=== PATIENT | male | born 1980 | race Caucasian/White ===

== ENCOUNTER 2018-06-06 05:12 | Emergency (ER) | payer BC, SELFPAY ==
[2018-06-06 05:13] VITALS: BP 150/85; PULSE 81; RESP 14; TEMP 36.7; O2SAT 97; BMI 38.0
[2018-06-06 05:16] VITALS: BP 147/78; PULSE 70; RESP 14; O2SAT 98
[2018-06-06] MEDS: Ketorolac 15 MG/ML Vial IV (05:26)
[2018-06-06] MEDS: 0.9% Normal Saline 1,000 ML 1000 ML IV (05:26)
[2018-06-06] MEDS: Ondansetron 4 MG/2 ML Vial IV (05:26)
[2018-06-06 05:35] LABS: Absolute Lymphocyte Count 0.59 X10^3/ul (0.83-4.51); Absolute Neutrophil Count 13.3 X10^3/uL (2.0-7.7); Basophil# 0.02 X10^3/uL; Basophil% 0.1 % (0-1); Hematocrit 42.1 % (40-54); Hemoglobin 14.3 g/dl (13.0-16.5); Lymphocyte # 0.59 X10^3/ul (4.0); Lymphocyte % 4.1 % (19-41); Mean Corpuscular Hgb 30.9 pg (27.0-32.0); Mean Corpuscular Volume 90.9 fL (80-94); Mean Platelet Vol. 9.3 fl (6.2-12.0); Monocyte# 0.31 X10^3/uL; Monocyte% 2.2 % (0-10); Neutrophil # 13.32 X10^3/uL (2.7-7.7); Neutrophil % 93.5 % (47-70); Platelet Count 295 K/mm3 (150-450); RBC Distribution Width CV 12.5 % (11.6-14.6); RBC Distribution Width SD 40.7 fl (35.1-43.9); Red Blood Count 4.63 M/mm3 (4.6-6.2); White Blood Count 14.3 K/mm3 (4.4-11.0)
[2018-06-06 05:38] LABS: Differential Indicated SCAN CRITERIA MET; POSITIVE COUNT NO; POSITIVE DIFFERENTIAL YES; POSITIVE MORPHOLOGY NO
[2018-06-06 05:50] LABS: AST(SGOT) 22 U/L (15-37); Alanine Aminotransfer ALT/SGPT 34 U/L (16-61); Albumin, Serum 3.9 g/dL (3.2-5.0); Alkaline Phosphatase 73 U/L (45-117); Anion Gap 10 (5-15); BUN 13 mg/dL (7-18); BUN/Creat Ratio 17.4 RATIO (10-20); Chloride 104 mmol/L (98-107); Creatinine, Serum 0.74 mg/dL (0.70-1.30); EST Glomerular Filtration Rate 124 mL/min (>60); Est Glom Filt Rate - Afr Amer 150 mL/min (>60); Glucose 118 mg/dL (74-106); Lipase 100 U/L (73-393); Potassium 3.8 mmol/L (3.5-5.1); Protein, Total 7.9 g/dL (6.4-8.2); Sodium Level 138 mmol/L (136-145)
--- NOTE | 2018-06-06 06:06 | ED.VISSUMM ---
- ER Visit Summary Date of Service: 06/06/18 Chief Complaint: [Nausea and vomiting] History of Present Illness: The patient is a 38 M [that presents with epigastric abdominal pain, nausea, and vomiting for the last several hours. His pain started after the vomiting. Hematemesis. He denies any diarrhea or urinary symptoms. He describes epigastric nonradiating abdominal aching type pain. He overall appears well and nontoxic. He has no other complaints. He denies any chest pain or dyspnea.] Physical Examination: [General: The patient appears well and in no apparent distress. Patient is resting comfortably on cart. Skin: Warm, dry, no pallor noted. No rash. Head: Normocephalic, atraumatic Neck: Supple, nontender. Eye: PERRLA, EOMI ENT: Moist mucus membranes, pharynx within normal limits. Cardiovascular: Regular Rate and Rhythm, no gallups or rubs Respiratory: Patient is in no distress, no accessory muscle use, lungs are clear to auscultation, no wheezing, rales or rhonchi Musculoskeletal: normal ROM, no deformity, no tenderness, no swelling. 2+ radial and DP pulses symmetric. GI: No tenderness to palpation, no masses appreciated. No rebound, guarding, or rigidity noted. Neurological: A&O, normal strength and sensation. Psychiatric: Cooperative] Test Results: [] Emergency Department Course and Treatment: [Patient given IV fluids, Zofran, and Toradol with improvement of symptoms. Mild nonspecific leukocytosis, remainder blood work overall unremarkable. CMP and lipase within normal limits. On reevaluation at 0555 patient feels improved and abdominal exam remains soft, nontender, nondistended. I do not feel imaging is indicated at this time. He will be given short-term prescription for Zofran ODT and referred to primary care for follow-up. He was instructed to return to the emergency department with any new or worsening symptoms or if unable to obtain close follow-up appointment. Patient and family understand and are agreeable with this plan of care. Patient was discharged home in stable and improved condition.] Treatment Plan: [see above] Disposition: [Discharge home, stable and improved condition] Impression: [Epigastric abdominal pain - resolved, Nausea and vomiting ] This note was generated with [employer] software. It may contain incorrect words, spelling, and punctuation that were not noted in review of the chart prior to signing ED Disposition - Plan for ED Patient: Disposition: Home or Assisted Living Chief Complaint: Nausea/Vomiting Instructions: ED Nausea Vomiting Prescriptions: Ondansetron [Zofran Odt] 4 mg PO Q8H PRN PRN #10 tab PRN Reason: Nausea Referrals: Darrell Vázquez DO [STAFF PHYSICIAN] -
[2018-06-06 06:19] VITALS: BP 156/80; PULSE 69; RESP 18; O2SAT 96
== END 2018-06-06 06:19 | disposition home or self-care (01) ==
PROVIDERS: Emergency Provider Emergency Medicine
DX: R10.13 Epigastric pain (principal); R11.2 Nausea with vomiting, unspecified; Z72.0 Tobacco use
CPT/HCPCS: 80053; 83690; 85025; 96361; 96374; 96375; 99283; J7030; J2405

== ENCOUNTER 2018-06-09 10:13 | Inpatient (IN) | payer BC, SELFPAY ==
[2018-06-09] VITALS (13 sets, daily range): BP systolic 114–159; BP diastolic 71–96; PULSE 77–115; RESP 14–19; TEMP 36.6–37.6; O2SAT 92–97; BMI 38.0; BMI 34.8
--- NOTE | 2018-06-09 10:42 | ED.VISSUMM ---
- ER Visit Summary Date of Service: 06/09/18 Chief Complaint: Epigastric abdominal pain with nausea, vomiting and diarrhea. History of Present Illness: The patient is a 38 M no significant past medical history. Denies any prior abdominal surgeries. Patient states since Tuesday he has had epigastric abdominal pain. Also with nausea, vomiting and diarrhea. He denies any hematemesis. He denies any dysuria. Subjectively states he has had a fever. He was seen in [place] ER on June 06 had a basically negative workup at that time. Was treated with IV fluids and nausea medications. He states he is not gotten any better. Patient states that he has black stool. Physical Examination: Middle-aged male. No acute distress. Vital signs are stable. Afebrile. He does not look septic or toxic. He does not look significantly dehydrated. HEENT exam unremarkable. Moist weeks membranes. Neck nontender. No lymphadenopathy. Lungs clear to auscultation bilaterally. Heart regular rhythm no murmur rate about 110. Abdomen is soft. Nondistended. Normal bowel sounds. He does have reproducible epigastric tenderness. There is no hernias or masses. There is no Jones sign. Positive McBurney's point tenderness. He is moving all 4 extremities. Neurovascular intact. Back is nontender. I did do a rectal exam he has normal rectal tone. There is no masses. Nontender. There is no gross blood. He has loose brown stool. There is no melena. Neurologically is awake and alert. Test Results: CBC showed an elevated white count of 23,500. Hemoglobin 14. Electrolytes unremarkable. Liver enzymes total bilirubin 1.1. Otherwise unremarkable. Lipase normal at 65. Due to his elevated white count from prior I obtained a CT abdomen and pelvis with IV contrast only. That was reviewed by me and read by the radiologist showed a perforated appendicitis with phlegmon fluid collection. Also distention of the bowel consistent with an ileus versus an early low-grade partial small bowel obstruction. On repeat exam no significant change. Patient's primarily tender in epigastric and periumbilical region. He does have some right lower quadrant tenderness. He has rebound. He is not significantly distended. Emergency Department Course and Treatment: Patient treated with IV Phenergan and IV fluids. Also p.o. Pepcid. With the patient's CAT scan findings he was started on IV Zosyn. I spoke to the general surgeon Dr. Shine and she requested that the patient also receive a NG tube due to his bowel distention. Treatment Plan: Admission for IV antibiotics. I spoke to Dr. Shine from the general surgeon after she evaluated the patient and reviewed his CAT scan and she does feel it is in his best interest to be taken to the operating room for appendectomy.. Disposition: Discharge Impression: Acute nausea, vomiting and diarrhea with abdominal pain secondary to perforated acute appendicitis with ileus versus partial small bowel obstruction This note was generated with [employer] dictation software. It may contain incorrect words, spelling, and punctuation that were not noted in review of the chart prior to signing ED Disposition - Plan for ED Patient: Disposition: Home or Assisted Living Instructions: ED Gastroenteritis Viral Prescriptions: Ondansetron [Zofran Odt] 4 mg PO Q8H PRN PRN #7 tab PRN Reason: Nausea Omeprazole [Prilosec] 20 mg PO DAILY #30 cap Referrals: Roger Richter [[facility]] - 3-5 Days if not improving Additional Instructions: Plenty of fluids and rest. Zofran as needed for nausea. Follow-up with a local primary care physician. Return if feeling worse. Prilosec for possible gastritis.
--- NOTE | 2018-06-09 10:45 | ED.DEP ---
ED Disposition - Plan for ED Patient: Disposition: Home or Assisted Living Instructions: ED Gastroenteritis Viral Prescriptions: Ondansetron [Zofran Odt] 4 mg PO Q8H PRN PRN #7 tab PRN Reason: Nausea Omeprazole [Prilosec] 20 mg PO DAILY #30 cap Referrals: Roger Richter [[facility]] - 3-5 Days if not improving Additional Instructions: Plenty of fluids and rest. Zofran as needed for nausea. Follow-up with a local primary care physician. Return if feeling worse. Prilosec for possible gastritis.
[2018-06-09] MEDS: proMETHazine 25 MG/ML Syringe 12.5 MG IV ×2 (10:47→12:59)
[2018-06-09] MEDS: 0.9% Normal Saline 1,000 ML 1000 ML IV (10:47)
[2018-06-09 11:18] LABS: AST(SGOT) 13 U/L (15-37); Alanine Aminotransfer ALT/SGPT 22 U/L (16-61); Albumin, Serum 3.1 g/dL (3.2-5.0); Alkaline Phosphatase 97 U/L (45-117); Anion Gap 10 (5-15); BUN 16 mg/dL (7-18); Bilirubin, Direct 0.16 mg/dL (0.00-0.30); Calcium,Total 9.5 mg/dL (8.5-10.1); Chloride 98 mmol/L (98-107); Creatinine, Serum 1.07 mg/dL (0.70-1.30); EST Glomerular Filtration Rate 82 mL/min (>60); Est Glom Filt Rate - Afr Amer 99 mL/min (>60); Estimated Creatinine Clearance 89.67 ml/min; Globulin 5.7 g/dL (2.2-4.2); Glucose 125 mg/dL (74-106); Lipase 65 U/L (73-393); Potassium 3.8 mmol/L (3.5-5.1); Protein, Total 8.8 g/dL (6.4-8.2); Sodium Level 134 mmol/L (136-145)
[2018-06-09] MEDS: Famotidine 20 MG Tablet 40 MG PO (11:22)
[2018-06-09 11:34] LABS: Absolute Lymphocyte Count 0.53 X10^3/ul (0.83-4.51); Absolute Neutrophil Count 21.2 X10^3/uL (2.0-7.7); Basophil# 0.02 X10^3/uL; Basophil% 0.1 % (0-1); Eosinophil# 0.02 X10^3/uL; Eosinophils% 0.1 % (0-5); Hematocrit 41.9 % (40-54); Hemoglobin 14.5 g/dl (13.0-16.5); Lymphocyte # 0.53 X10^3/ul (4.0); Lymphocyte % 2.3 % (19-41); Mean Corp Hgb Conc 34.6 g/gl (32-36); Mean Corpuscular Hgb 31.7 pg (27.0-32.0); Mean Corpuscular Volume 91.5 fL (80-94); Mean Platelet Vol. 9.6 fl (6.2-12.0); Monocyte# 1.66 X10^3/uL; Monocyte% 7.1 % (0-10); Neutrophil # 21.21 X10^3/uL (2.7-7.7); Platelet Count 271 K/mm3 (150-450); RBC Distribution Width CV 12.8 % (11.6-14.6); RBC Distribution Width SD 42.6 fl (35.1-43.9); Red Blood Count 4.58 M/mm3 (4.6-6.2); White Blood Count 23.5 K/mm3 (4.4-11.0)
[2018-06-09 11:35] LABS: Differential Indicated SCAN CRITERIA MET; POSITIVE COUNT NO; POSITIVE DIFFERENTIAL YES; POSITIVE MORPHOLOGY NO
--- NOTE | 2018-06-09 11:38 | CT_ITS ---
STUDY: CT ABDOMEN AND PELVIS WITH CONTRAST REASON FOR EXAM: Male, 38 years old. Epigastric pain, leukocytosis. RADIATION DOSAGE (If Supplied By Facility): CTDIvol = ( 18.71 ) mGy, DLP = ( 1332.73 ) mGycm TECHNIQUE: Transaxial images were obtained from the dome of the diaphragm to the symphysis pubis without oral contrast. 100 ml of Isovue 300 contrast was administered. Sagittal and coronal images were reconstructed. Individualized dose optimization techniques were used for this CT. COMPARISON: None. FINDINGS: Mild elevation of the right diaphragm. The visualized lung bases are unremarkable. The visualized portions of the heart are within normal limits. Normal liver. The portal vein diameter is 15.5 mm. Normal gallbladder and extrahepatic biliary system. The common bile duct diameter is 5 mm. Normal spleen. Normal pancreas. Normal bilateral adrenal glands. Normal right kidney. Normal left kidney. No hydronephrosis. Normal visualized stomach. There are numerous loops of 4 cm diameter as in fluid-filled small bowel to the ileocecal region. There are number of 10-11 mm rim calcified appendicoliths in the appendix, which is dilated up to 21 mm. There is significant inflammatory/phlegmonous stranding surrounding the appendix, lower cecum, and ileocecal juncture. Within this phlegmonous change is 6.6 x 5.3 x 4.0 cm ill-defined collection of low-density fluid and gas bubbles consistent with localized perforation. The remainder of the colon is unremarkable. There are number of nonspecific lymph nodes in the central mesentery. Normal abdominal aorta. Normal inferior vena cava. There are occasional nonspecific periaortic peritoneal lymph nodes. Normal urinary bladder. Normal visualized prostate gland. Normal abdominal wall. Degenerative anterior endplate osteophyte formation in the lower thoracic spine most prominent at T8-9 and T9-10. There are minimal degenerative changes of the lumbar spine. CT/Abdomen/Pelvis W IV Cont ONLY IMPRESSION: Acute appendicitis with localized perforation and surrounding phlegmonous inflammatory changes. There is mild small bowel dilatation that could reflect a generalized ileus versus low-grade partial small bowel obstruction secondary to the inflammatory process of the ileocecal valve. N.B. : The above information has been verbally conveyed by Earnest Becker MD to Mazin Burciaga MD, on 06/09/2018 12:09:21 (ET). Electronically Signed: Earnest Becker MD at 12:14 EST , Service support ,
[2018-06-09 11:54] LABS: Differential Comment SCANNED
--- NOTE | 2018-06-09 12:22 | RAD_ITS ---
STUDY: X-RAY - ABDOMEN/PELVIS REASON FOR EXAM: Male, 38 years old. Nausea/vomiting/diarrhea. Admission for appendicitis. TECHNIQUE: Single AP upright view of the abdomen. COMPARISON: CT abdomen and pelvis 1147 hours. FINDINGS: Poorly visualized lung bases. Distal nasogastric tube is in the stomach. There are numerous loops of gas and fluid-filled small bowel with fluid levels on upright exam, consistent with an ileus or low-grade partial small bowel obstruction. There is no demonstrated free abdominal air. The visualized liver, spleen and kidneys are grossly normal in size and morphology. Contrast from previous study seen in the nondilated renal calyces. Normal soft tissue structures. There are degenerative changes of the visualized lower thoracic spine. RAD/Abdomen Single View (Portable) IMPRESSION: 1. Distal nasogastric tube is in the stomach. 2. Small bowel ileus versus low-grade partial small bowel obstruction. No demonstrated free gas. Electronically Signed: Earnest Becker MD at 13:45 EST , Service support ,
[2018-06-09] MEDS: morphine 8 MG/ML Syringe 6 MG IV (12:29)
--- NOTE | 2018-06-09 12:49 | CM.ED ---
Social Work Note Pt does not have PCP. Introduced self and role to pt's , Nia, as pt was with imaging and experiencing uncontrolled emesis. Per pt's they live together, have access to transportation and deny needs. Pt does not have a PCP, but accepted information on area physicians that are accepting. Stated that they both are stubborn and have had bad experiences with doctors but was willing to review the list. Informed that staff could assist with scheduling an appointment at discharge is needed. Their preferred pharmacy is [facility], and educated them to [facility] for convenience at discharge. Pt does not have a hx of mental health diagnoses, and does chew tobacco daily. No other substance abuse concerns. Anticipate discharge home with support of . PLAN: Home with support of . JACEK Del Valle, HEATHER
--- NOTE | 2018-06-09 13:23 | PCM.HP.STD ---
History of Present Illness Date of Admission: 06/09/18 The patient is a 38 year old M presented to the ER due to diffuse abdominal pain, decreased appetite, fevers, nausea and vomiting. Patient had a CT abdomen pelvis done which did show perforated appendicitis/phlegmon with appendicoliths, dilated small bowel likely ileus. Patient's white blood count is 23.5. Patient states that pain initially started on Tuesday evening and he came into the ER Tuesday a.m. mostly complaining of kind of epigastric pain he was told he had the fluid was given some fluid and DC'd home. Patient states he continued to have abdominal pain and not feel well, fevers, nausea and vomiting, decreased appetite and so he represented to the ER today. Patient complains of mostly diffuse abdominal pain 10 out of 10 prior to coming in. Past Medical History Allergies No Known Allergies Allergy (Verified 06/09/18 10:15) Home Medications: Ambulatory Orders Medication Instructions Recorded Ondansetron [Zofran Odt] 4 mg PO Q8H PRN PRN #10 tab 06/06/18 Omeprazole [Prilosec] 20 mg PO DAILY #30 cap 06/09/18 Ondansetron [Zofran Odt] 4 mg PO Q8H PRN PRN #7 tab 06/09/18 Surgical History: no surgical history Psychiatric History: No pertinent psych hx Lives: With Family Smoking Status: Never smoker Alcohol: Occasional Drugs: None - *Family History Paternal History Items: No pertinent history Review of Systems Constitutional: Reports: Anorexia, Chills, Fever Eyes: Denies: Blurred vision HEENT: Denies: Difficulty Swallowing Cardiovascular: Denies: Chest Pain Gastrointestinal: Reports: Abdominal Pain VTE Information - Inpt Only VTE Present on Admission: Yes VTE Mechan Device Prophylaxis: SCD's VTE Pharm Prophylaxis ordered?: No Reason prophylaxis not ordered:: Medical Contraindication - Patient is going to surgery - Physical Exam General: Alert, Oriented x3, Cooperative HEENT: Atraumatic Lungs: Normal air movement Cardiovascular: Regular rate Abdomen: Soft, Non-Distended, Tender - Diffusely tender-right upper quadrant, right lower quadrant, left lower quadrant, mild worsening sign, no peritoneal signs Extremities: No clubbing, No cyanosis, No edema Neurological: Cranial nerves II-XII grossly intact Psych/Mental Status: Normal Affect Vital Signs Temp Pulse Resp BP Pulse Ox 98 F 86 16 159/96 H 96 06/09/18 10:13 06/09/18 12:17 06/09/18 12:17 06/09/18 12:17 06/09/18 12:17 Oxygen Delivery Method Room Air Weight: 250 lb Body Mass Index (BMI) 38.0 Laboratory Tests Past 24 Hrs 06/09/18 06/09/18 06/09/18 10:45 10:47 11:23 WBC Cancelled 23.5 H Corrected WBC Cancelled RBC Cancelled 4.58 L Hgb Cancelled 14.5 Hct Cancelled 41.9 MCV Cancelled 91.5 MCH Cancelled 31.7 MCHC Cancelled 34.6 RDW Cancelled 12.8 RDW Differential Cancelled 42.6 Plt Count Cancelled 271 MPV Cancelled 9.6 Immature Gran % (Auto) Cancelled 0.400 Neut % (Auto) Cancelled 90.0 H Lymph % (Auto) Cancelled 2.3 L [place] % (Auto) Cancelled 7.1 Eos % (Auto) Cancelled 0.1 Baso % (Auto) Cancelled 0.1 Absolute Neuts (auto) Cancelled 21.2 H Absolute Lymphs (auto) Cancelled 0.53 L Total Counted Cancelled Not Reportable Neutrophils % (Manual) Cancelled Band Neutrophils % Cancelled Lymphocytes % (Manual) Cancelled Monocytes % (Manual) Cancelled Eosinophils % (Manual) Cancelled Basophils % (Manual) Cancelled Metamyelocytes % Cancelled Myelocytes % Cancelled Promyelocytes % Cancelled Blast Cells % Cancelled Plasma Cell % (Manual) Cancelled Other Cells % Cancelled Nucleated RBCs/100 WBC Cancelled Differential Comment Cancelled SCANNED Diff Path Review Cancelled May foll Hypersegmented Neuts Cancelled Atypical Lymphocytes Cancelled Reactive Lymphocytes Cancelled Smudge Cells Cancelled Toxic Granulation Cancelled Dohle Bodies Cancelled Eduard Rods Cancelled Platelet Estimate Cancelled Plt Morphology Comment Cancelled RBC Morphology Cancelled Polychromasia Cancelled Hypochromasia Cancelled Poikilocytosis Cancelled Basophilic Stippling Cancelled Anisocytosis Cancelled Microcytosis Cancelled Macrocytosis Cancelled Spherocytes Cancelled Sickle Cells Cancelled Target Cells Cancelled Tear Drop Cells Cancelled Ovalocytes Cancelled Stomatocytes Cancelled [place] Bodies Cancelled [place] Cells Cancelled Bite Cells Cancelled Acanthocytes (Spur) Cancelled Rouleaux Cancelled Schistocytes Cancelled Sodium 134 L Potassium 3.8 Chloride 98 Carbon Dioxide 26.0 Anion Gap 10 BUN 16 Creatinine 1.07 Estim Creat Clear Calc 89.67 Est GFR (MDRD) Af Amer 99 Est GFR (MDRD) Non-Af 82 BUN/Creatinine Ratio 15.0 Glucose 125 H Calcium 9.5 Total Bilirubin 1.10 H Direct Bilirubin 0.16 AST 13 L ALT 22 Alkaline Phosphatase 97 Total Protein 8.8 H Albumin 3.1 L Globulin 5.7 H Lipase 65 L Assessment/Plan 38-year-old male with perforated appendicitis, appendicoliths and localized phlegmon, white blood count of 23.5 1. N.p.o./IV fluids. Zosyn IV. We will plan for a laparoscopic appendectomy possible open possible bowel resection which could include an ileocecectomy, possible drain placement. Discussed with patient and his risks including but not limited to bleeding, infection/abscess, need for further surgery if only a drain was placed, possible leak, injury to another organ i.e. small bowel, and anesthesia. Discussed with patient and his that his CT scan showed that there is localized perforation is not really amenable to local drainage also due to his multiple appendicoliths in his appendix he would need surgical intervention to remove those. Patient and his had no further questions at this time. Bhavana Shine M.D. Pager: [phone] [facility] [address] [place] [address], [address] [place] [address] Office: [phone]
--- NOTE | 2018-06-09 13:30 | HP.PCM_ITS ---
History of Present Illness Date of Admission: 06/09/18 The patient is a 38 year old M presented to the ER due to diffuse abdominal pain, decreased appetite, fevers, nausea and vomiting. Patient had a CT abdomen pelvis done which did show perforated appendicitis/phlegmon with appendicoliths, dilated small bowel likely ileus. Patient's white blood count is 23.5. Patient states that pain initially started on Tuesday evening and he came into the ER Tuesday a.m. mostly complaining of kind of epigastric pain he was told he had the fluid was given some fluid and DC'd home. Patient states he continued to have abdominal pain and not feel well, fevers, nausea and vomiting, decreased appetite and so he represented to the ER today. Patient complains of mostly diffuse abdominal pain 10 out of 10 prior to coming in. Past Medical History Allergies No Known Allergies Allergy (Verified 06/09/18 10:15) Home Medications: Ambulatory Orders Medication Instructions Recorded Ondansetron [Zofran Odt] 4 mg PO Q8H PRN PRN #10 tab 06/06/18 Omeprazole [Prilosec] 20 mg PO DAILY #30 cap 06/09/18 Ondansetron [Zofran Odt] 4 mg PO Q8H PRN PRN #7 tab 06/09/18 Surgical History: no surgical history Psychiatric History: No pertinent psych hx Lives: With Family Smoking Status: Never smoker Alcohol: Occasional Drugs: None - *Family History Paternal History Items: No pertinent history Review of Systems Constitutional: Reports: Anorexia, Chills, Fever Eyes: Denies: Blurred vision HEENT: Denies: Difficulty Swallowing Cardiovascular: Denies: Chest Pain Gastrointestinal: Reports: Abdominal Pain VTE Information - Inpt Only VTE Present on Admission: Yes VTE Mechan Device Prophylaxis: SCD's VTE Pharm Prophylaxis ordered?: No Reason prophylaxis not ordered:: Medical Contraindication - Patient is going to surgery - Physical Exam General: Alert, Oriented x3, Cooperative HEENT: Atraumatic Lungs: Normal air movement Cardiovascular: Regular rate Abdomen: Soft, Non-Distended, Tender - Diffusely tender-right upper quadrant, right lower quadrant, left lower quadrant, mild worsening sign, no peritoneal signs Extremities: No clubbing, No cyanosis, No edema Neurological: Cranial nerves II-XII grossly intact Psych/Mental Status: Normal Affect Vital Signs Temp Pulse Resp BP Pulse Ox 98 F 86 16 159/96 H 96 06/09/18 10:13 06/09/18 12:17 06/09/18 12:17 06/09/18 12:17 06/09/18 12:17 Oxygen Delivery Method Room Air Weight: 250 lb Body Mass Index (BMI) 38.0 Laboratory Tests Past 24 Hrs 06/09/18 06/09/18 06/09/18 10:45 10:47 11:23 WBC Cancelled 23.5 H Corrected WBC Cancelled RBC Cancelled 4.58 L Hgb Cancelled 14.5 Hct Cancelled 41.9 MCV Cancelled 91.5 MCH Cancelled 31.7 MCHC Cancelled 34.6 RDW Cancelled 12.8 RDW Differential Cancelled 42.6 Plt Count Cancelled 271 MPV Cancelled 9.6 Immature Gran % (Auto) Cancelled 0.400 Neut % (Auto) Cancelled 90.0 H Lymph % (Auto) Cancelled 2.3 L [place] % (Auto) Cancelled 7.1 Eos % (Auto) Cancelled 0.1 Baso % (Auto) Cancelled 0.1 Absolute Neuts (auto) Cancelled 21.2 H Absolute Lymphs (auto) Cancelled 0.53 L Total Counted Cancelled Not Reportable Neutrophils % (Manual) Cancelled Band Neutrophils % Cancelled Lymphocytes % (Manual) Cancelled Monocytes % (Manual) Cancelled Eosinophils % (Manual) Cancelled Basophils % (Manual) Cancelled Metamyelocytes % Cancelled Myelocytes % Cancelled Promyelocytes % Cancelled Blast Cells % Cancelled Plasma Cell % (Manual) Cancelled Other Cells % Cancelled Nucleated RBCs/100 WBC Cancelled Differential Comment Cancelled SCANNED Diff Path Review Cancelled May foll Hypersegmented Neuts Cancelled Atypical Lymphocytes Cancelled Reactive Lymphocytes Cancelled Smudge Cells Cancelled Toxic Granulation Cancelled Dohle Bodies Cancelled Eduard Rods Cancelled Platelet Estimate Cancelled Plt Morphology Comment Cancelled RBC Morphology Cancelled Polychromasia Cancelled Hypochromasia Cancelled Poikilocytosis Cancelled Basophilic Stippling Cancelled Anisocytosis Cancelled Microcytosis Cancelled Macrocytosis Cancelled Spherocytes Cancelled Sickle Cells Cancelled Target Cells Cancelled Tear Drop Cells Cancelled Ovalocytes Cancelled Stomatocytes Cancelled Barnes-[place] Bodies Cancelled [place] Cells Cancelled Bite Cells Cancelled Acanthocytes (Spur) Cancelled Rouleaux Cancelled Schistocytes Cancelled Sodium 134 L Potassium 3.8 Chloride 98 Carbon Dioxide 26.0 Anion Gap 10 BUN 16 Creatinine 1.07 Estim Creat Clear Calc 89.67 Est GFR (MDRD) Af Amer 99 Est GFR (MDRD) Non-Af 82 BUN/Creatinine Ratio 15.0 Glucose 125 H Calcium 9.5 Total Bilirubin 1.10 H Direct Bilirubin 0.16 AST 13 L ALT 22 Alkaline Phosphatase 97 Total Protein 8.8 H Albumin 3.1 L Globulin 5.7 H Lipase 65 L Assessment/Plan 38-year-old male with perforated appendicitis, appendicoliths and localized phlegmon, white blood count of 23.5 1. N.p.o./IV fluids. Zosyn IV. We will plan for a laparoscopic appendectomy possible open possible bowel resection which could include an ileocecectomy, possible drain placement. Discussed with patient and his risks including but not limited to bleeding, infection/abscess, need for further surgery if only a drain was placed, possible leak, injury to another organ i.e. small bowel, and anesthesia. Discussed with patient and his that his CT scan showed that there is localized perforation is not really amenable to local drainage also due to his multiple appendicoliths in his appendix he would need surgical intervention to remove those. Patient and his had no further questions at this time. Bhavana Shine M.D. Pager: [phone] [facility] [address] [place] [address], [address] [place] [address] Office: [phone]
--- NOTE | 2018-06-09 14:15 | ED.RN ---
report given to at 1415. desire[facility] rn
--- NOTE | 2018-06-09 14:20 | APP_PTH ---
PATIENT: ERMIAS MUNOZ LOC: MS2 U#:[id number] AGE/SX: 38/M [place] [facility] [place]: Dr. Bhavana Shine MD : 1980 BED: 1 DIS: 06/16/2018 SPEC #: [id number] RECD: 06/12/18 07:40 STATUS: JAIRO KAMALJIT #: [id number] ML: 06/09/18 14:[address]: Bhavana Shine DEPT: SURGICAL PATHOLOGY RECD BY: Freddie Loyd ENTERED: 06/12/18 09:40 SP TYPE: APPENDIX OTHR DR: No Primary Care Phys Tissues: Appendix, NOS Procedures: Surgery Specimen Level III HEADER OPERATION: Laparoscopic appendectomy PRE-OP DIAGNOSIS: Perforated appendicitis, appendicolith, localized phlegmon TISSUE SUBMITTED: Appendix MICROSCOPIC DIAGNOSIS Appendix, appendectomy: Acute appendicitis. Acute serositis. Appendicolith. AM:elie 06/13/18 MICROSCOPIC DESCRIPTION Slides are reviewed. GROSS DESCRIPTION Received is one container labeled with the patient's name and designated appendix. The specimen consists of an appendix measuring 13 cm in length and with an average diameter of 2.5 cm. The serosal surface is valentine-mendoza in color. No gross perforations are identified. Serial sections reveal fecal impaction and fecaliths. Nail Technician sections are submitted in four cassettes. / AM:elie 06/12/18 TC:2 CPT: 45270
[2018-06-09 15:59] LABS: Pathologist Review Reviewed
[2018-06-09] MEDS: Bupiv/Epi 0.5% Mpf 30 ML Vial (17:30)
--- NOTE | 2018-06-09 17:34 | PCM.OPRPT ---
Report of Operation Date of Procedure: 06/09/18 Pre-Operative Diagnosis: Perforated appendicitis Post-Operative Diagnosis: Same Surgery/Procedure Performed:: Laparoscopic appendectomy infection control nurse: Antoine Lassiter infection control nurse: Moisés Iniguez Type of Anesthesia:: General/Supplemental Anesthesiologist: Herbie Dumont Special Medications: Zosyn 4.5 g IV given in ER for acute perforated appendicitis Specimen's removed: appendix Drains: johnson 350cc, NG-150 cc Estimated Blood Loss (mL): < 30 cc Fluids Replaced: 2300 Description of Procedure: Indications: 38-year-old male presented to the ER with new right lower quadrant pain this morning. On workup he was found to have perforated appendicitis on CT and a leukocytosis of 23, with hx of pain for 5 days. Patient was started on antibiotics in the ER for acute appendicitis-Zosyn 4.5 g IV x1 Description of the procedure: The patient was placed on operating table in supine position. General anesthesia was induced. A timeout was completed verifying correct patient, procedure, sacrum position and special, prior to beginning procedure. A Johnson catheter was placed and NG was placed in ER. Abdomen was prepped and draped in usual sterile fashion. Incision was made in the natural skin line above the umbilicus with a 15 blade scalpel. The fascia was elevated and incised. Entry into the peritoneum was confirmed visually and no bowel was noted in the vicinity of the incision. The Negrete trocar was placed under direct vision. Abdomen insufflated with a pressure of 12-15 mmHg. Patient tolerated insertion well. The scope was inserted and the abdomen inspected. No injuries from initial trocar placement were noted. An inflammatory mass was noted in the right lower quadrant. An direct visualization 2 -5 mm trocars were placed one above the symptoms his pubis and below the hairline and one in the left lower quadrant lateral to the rectus muscle. Care is taken to avoid injury to the bladder and inferior epigastric vessels. The table was placed in Trendelenburg position with the right side elevated. The omentum was carefully removed from the inflammatory mass with gentle traction. The appendix was noted to be very inflamed and large. The appendix was able to be freed from the terminal ileum and abdominal sidewall with gentle traction. The appendix did have dense adhesions. An additional 5 mm trochar placed in the right mid quadrant to help with retraction. The abscess pocket was suctioned and sent for culture. Using a [place] dissector able to dissect the base of the appendix from the cecum after freeing up the base of the cecum. Once we were able to free up the base of the appendix. An endoscopic 45 mm linear cutting stapler blue load was then used to divide and staple the base of the appendix. The base of the divided appendix was grasped and used for traction to help remove the appendix from the rest of the inflammatory tissue. Once it was clear that small bowel was clear from the dissection, the Enseal was used to divide the mesoappendix. The appendix was withdrawn into the Negrete trocar after being placed endoscopically retrieval bag. The supraumbilical incision had to be enlarged due to the size of the appendix. Appendix and appendicoliths was sent to pathology. The appendiceal stump and abdomen were irrigated with a couple liters of fluid and hemostasis was assured. Fluid was suctioned no other pathology was identified. Secondary trochars were removed under direct visualization. No bleeding was noted trocar sites. The laparoscope withdrawn and the umbilical trocar removed. The abdomen was allowed to collapse. Local anesthesia of 20 mL of 0.5% Marcaine was used at the incision sites. The umbilical trocar site was closed with the 3 [id number] 0 Vicryl sutures. The skin was closed up to clear sutures of 4-0 Monocryl and Steri-Strips. The patient was extubated. The patient tolerated the procedure well and was taken to the postanesthesia care unit in satisfactory condition. - Complications none
[2018-06-09] MEDS: Piperacil/Tazobactam 3.375 GM/50 ML ML IV (20:58)
[2018-06-10 03:30] VITALS: BP 117/82; PULSE 105; RESP 18; TEMP 37.1; O2SAT 95
[2018-06-10] MEDS: Piperacil/Tazobactam 3.375 GM/50 ML ML IV ×3 (06:05→21:53)
[2018-06-10 06:58] LABS: Absolute Lymphocyte Count 0.57 X10^3/ul (0.83-4.51); Absolute Neutrophil Count 15.2 X10^3/uL (2.0-7.7); Basophil# 0.02 X10^3/uL; Basophil% 0.1 % (0-1); Hematocrit 40.5 % (40-54); Hemoglobin 13.5 g/dl (13.0-16.5); Lymphocyte # 0.57 X10^3/ul (4.0); Lymphocyte % 3.2 % (19-41); Mean Corp Hgb Conc 33.3 g/gl (32-36); Mean Corpuscular Hgb 30.8 pg (27.0-32.0); Mean Corpuscular Volume 92.5 fL (80-94); Mean Platelet Vol. 9.4 fl (6.2-12.0); Monocyte% 9.7 % (0-10); Neutrophil # 15.19 X10^3/uL (2.7-7.7); Neutrophil % 86.7 % (47-70); Platelet Count 347 K/mm3 (150-450); RBC Distribution Width CV 13.3 % (11.6-14.6); Red Blood Count 4.38 M/mm3 (4.6-6.2); White Blood Count 17.5 K/mm3 (4.4-11.0)
[2018-06-10 06:59] LABS: Differential Indicated SCAN CRITERIA MET; POSITIVE COUNT NO; POSITIVE DIFFERENTIAL YES; POSITIVE MORPHOLOGY NO
[2018-06-10 07:31] LABS: AST(SGOT) 12 U/L (15-37); Alanine Aminotransfer ALT/SGPT 18 U/L (16-61); Albumin, Serum 2.2 g/dL (3.2-5.0); Alkaline Phosphatase 76 U/L (45-117); Anion Gap 12 (5-15); BUN 15 mg/dL (7-18); BUN/Creat Ratio 18.3 RATIO (10-20); Bilirubin, Direct 0.25 mg/dL (0.00-0.30); Calcium,Total 8.4 mg/dL (8.5-10.1); Chloride 109 mmol/L (98-107); Creatinine, Serum 0.82 mg/dL (0.70-1.30); EST Glomerular Filtration Rate 111 mL/min (>60); Est Glom Filt Rate - Afr Amer 135 mL/min (>60); Estimated Creatinine Clearance 124.88 ml/min; Globulin 4.7 g/dL (2.2-4.2); Glucose 146 mg/dL (74-106); Potassium 3.9 mmol/L (3.5-5.1); Protein, Total 6.9 g/dL (6.4-8.2); Sodium Level 143 mmol/L (136-145)
--- NOTE | 2018-06-10 08:15 | PN.SURG_ITS ---
Subjective: Patient states he is feeling better than yesterday, denies any nausea or vomiting, minimal flatus, minimal NG output?NG DC'd - Physical Exam General: Alert, Oriented x3, Cooperative, No apparent distress HEENT: Atraumatic Cardiovascular: Regular rate Abdomen: Soft, Non-Distended, Tender - Near incisions, incisions clean dry and intact, no peritoneal signs Extremities: No clubbing, No cyanosis, No edema Vital Signs Temp Pulse Resp BP Pulse Ox 98.8 F 105 H 18 117/82 H 95 06/10/18 03:30 06/10/18 03:30 06/10/18 03:30 06/10/18 03:30 06/10/18 03:30 Oxygen Flow Rate (L/min) 3 Oxygen Delivery Method Nasal Cannula Weight: 248 lb 10.903 oz Body Mass Index (BMI) 34.8 Intake and Output for Last 24 Hours 06/08/18 06/09/18 06/10/18 23:59 23:59 23:59 Intake Total 3450 / 3450 532 / 532 Output Total 975 / 975 350 / 350 Balance 2475 / 2475 182 / 182 Laboratory Tests Past 24 Hrs 06/09/18 06/09/18 06/09/18 10:45 10:47 11:23 WBC Cancelled 23.5 H Corrected WBC Cancelled RBC Cancelled 4.58 L Hgb Cancelled 14.5 Hct Cancelled 41.9 MCV Cancelled 91.5 MCH Cancelled 31.7 MCHC Cancelled 34.6 RDW Cancelled 12.8 RDW Differential Cancelled 42.6 Plt Count Cancelled 271 MPV Cancelled 9.6 Immature Gran % (Auto) Cancelled 0.400 Neut % (Auto) Cancelled 90.0 H Lymph % (Auto) Cancelled 2.3 L Ellis % (Auto) Cancelled 7.1 Eos % (Auto) Cancelled 0.1 Baso % (Auto) Cancelled 0.1 Absolute Neuts (auto) Cancelled 21.2 H Absolute Lymphs (auto) Cancelled 0.53 L Total Counted Cancelled Not Reportable Neutrophils % (Manual) Cancelled Band Neutrophils % Cancelled Lymphocytes % (Manual) Cancelled Monocytes % (Manual) Cancelled Eosinophils % (Manual) Cancelled Basophils % (Manual) Cancelled Metamyelocytes % Cancelled Myelocytes % Cancelled Promyelocytes % Cancelled Blast Cells % Cancelled Plasma Cell % (Manual) Cancelled Other Cells % Cancelled Nucleated RBCs/100 WBC Cancelled Differential Comment Cancelled SCANNED Diff Path Review Cancelled Reviewed Hypersegmented Neuts Cancelled Atypical Lymphocytes Cancelled Reactive Lymphocytes Cancelled Smudge Cells Cancelled Toxic Granulation Cancelled Dohle Bodies Cancelled Eduard Rods Cancelled Platelet Estimate Cancelled Plt Morphology Comment Cancelled RBC Morphology Cancelled Polychromasia Cancelled Hypochromasia Cancelled Poikilocytosis Cancelled Basophilic Stippling Cancelled Anisocytosis Cancelled Microcytosis Cancelled Macrocytosis Cancelled Spherocytes Cancelled Sickle Cells Cancelled Target Cells Cancelled Tear Drop Cells Cancelled Ovalocytes Cancelled Stomatocytes Cancelled [place] Bodies Cancelled Tello Cells Cancelled Bite Cells Cancelled Acanthocytes (Spur) Cancelled Rouleaux Cancelled Schistocytes Cancelled Sodium 134 L Potassium 3.8 Chloride 98 Carbon Dioxide 26.0 Anion Gap 10 BUN 16 Creatinine 1.07 Estim Creat Clear Calc 89.67 Est GFR (MDRD) Af Amer 99 Est GFR (MDRD) Non-Af 82 BUN/Creatinine Ratio 15.0 Glucose 125 H Calcium 9.5 Total Bilirubin 1.10 H Direct Bilirubin 0.16 AST 13 L ALT 22 Alkaline Phosphatase 97 Total Protein 8.8 H Albumin 3.1 L Globulin 5.7 H Lipase 65 L 06/10/18 06/10/18 06:25 06:25 WBC 17.5 H Corrected WBC RBC 4.38 L Hgb 13.5 Hct 40.5 MCV 92.5 MCH 30.8 MCHC 33.3 RDW 13.3 RDW Differential 45.0 H Plt Count 347 MPV 9.4 Immature Gran % (Auto) 0.300 Neut % (Auto) 86.7 H Lymph % (Auto) 3.2 L Ellis % (Auto) 9.7 Eos % (Auto) 0.0 Baso % (Auto) 0.1 Absolute Neuts (auto) 15.2 H Absolute Lymphs (auto) 0.57 L Total Counted Not Reportable Neutrophils % (Manual) Band Neutrophils % Lymphocytes % (Manual) Monocytes % (Manual) Eosinophils % (Manual) Basophils % (Manual) Metamyelocytes % Myelocytes % Promyelocytes % Blast Cells % Plasma Cell % (Manual) Other Cells % Nucleated RBCs/100 WBC Differential Comment Diff Path Review May foll Hypersegmented Neuts Atypical Lymphocytes Reactive Lymphocytes Smudge Cells Toxic Granulation Dohle Bodies Eduard Rods Platelet Estimate Plt Morphology Comment RBC Morphology Polychromasia Hypochromasia Poikilocytosis Basophilic Stippling Anisocytosis Microcytosis Macrocytosis Spherocytes Sickle Cells Target Cells Tear Drop Cells Ovalocytes Stomatocytes [place] Bodies Walton Cells Bite Cells Acanthocytes (Spur) Rouleaux Schistocytes Sodium 143 Potassium 3.9 Chloride 109 H Carbon Dioxide 22.0 Anion Gap 12 BUN 15 Creatinine 0.82 Estim Creat Clear Calc 124.88 Est GFR (MDRD) Af Amer 135 Est GFR (MDRD) Non-Af 111 BUN/Creatinine Ratio 18.3 Glucose 146 H Calcium 8.4 L Total Bilirubin 0.90 Direct Bilirubin 0.25 AST 12 L ALT 18 Alkaline Phosphatase 76 Total Protein 6.9 Albumin 2.2 L Globulin 4.7 H Lipase Medical Necessity - Tobacco Use Smoking Status: Never smoker Tobacco Use: Chew Assessment/Plan 38-year-old male status post lap scopic appendectomy for perforated appendicitis 1. N.p.o./IV fluids, await increased bowel function 2. Leukocytosis, improved still 17, continue Zosyn IV 3. Ambulate halls 4. Wean O2, incentive spirometer 5. PPI for GI prophylaxis, SCDs for DVT prophylaxis Bhavana Shine M.D. Pager: [phone] [facility] [address] [place] [address], Outpatient [facility]ilion, [address] [place] [id number] Office: [phone]
[2018-06-10] MEDS: Ketorolac 15 MG/ML Vial IV (09:43)
[2018-06-10] MEDS: 0.9% NaCl Peripheral Flush Adult/Peds IV (09:44)
--- NOTE | 2018-06-10 10:23 | CM.UR ---
mission assessment specialist completed. Met face to face with patient and his , introduced myself and explained my role. they deny anticipating any needs upon discharge. Plan it so discharge to home. Johanna Cazares RN, [facility].
[2018-06-10 10:34] VITALS: BP 123/85; PULSE 91; RESP 18; TEMP 37.3; O2SAT 94
[2018-06-10 15:23] VITALS: BP 127/83; PULSE 92; RESP 18; TEMP 36.6; O2SAT 94
[2018-06-10] MEDS: Morphine 2 MG/ML Syringe IV (15:30)
[2018-06-10 16:00] VITALS: O2SAT 94
[2018-06-10] MEDS: BENZOCAINE/MENTHOL 1 LOZENGE MUCOUS MEM (18:50)
[2018-06-10] MEDS: Famotidine 20 MG Tablet PO (18:50)
[2018-06-10 21:46] VITALS: BP 154/99; PULSE 96; RESP 18; TEMP 37.2; O2SAT 92
[2018-06-11] MEDS: Ketorolac 15 MG/ML Vial IV ×2 (02:19→18:00)
[2018-06-11 05:25] VITALS: BP 151/86; PULSE 87; RESP 18; TEMP 36.8; O2SAT 95
[2018-06-11] MEDS: Piperacil/Tazobactam 3.375 GM/50 ML ML IV ×3 (05:27→21:35)
[2018-06-11 07:46] LABS: Absolute Lymphocyte Count 0.99 X10^3/ul (0.83-4.51); Absolute Neutrophil Count 12.1 X10^3/uL (2.0-7.7); Basophil# 0.06 X10^3/uL; Basophil% 0.4 % (0-1); Eosinophil# 0.08 X10^3/uL; Eosinophils% 0.5 % (0-5); Hematocrit 36.4 % (40-54); Hemoglobin 12.2 g/dl (13.0-16.5); Lymphocyte # 0.99 X10^3/ul (4.0); Lymphocyte % 6.8 % (19-41); Mean Corp Hgb Conc 33.5 g/gl (32-36); Mean Corpuscular Hgb 31.9 pg (27.0-32.0); Mean Platelet Vol. 9.3 fl (6.2-12.0); Monocyte# 1.28 X10^3/uL; Monocyte% 8.8 % (0-10); Neutrophil # 12.07 X10^3/uL (2.7-7.7); Platelet Count 323 K/mm3 (150-450); RBC Distribution Width CV 13.5 % (11.6-14.6); Red Blood Count 3.83 M/mm3 (4.6-6.2); White Blood Count 14.6 K/mm3 (4.4-11.0)
[2018-06-11 07:48] LABS: Differential Indicated SCAN CRITERIA MET; POSITIVE COUNT NO; POSITIVE DIFFERENTIAL NO; POSITIVE MORPHOLOGY YES
[2018-06-11 07:55] LABS: Anion Gap 8 (5-15); BUN 16 mg/dL (7-18); BUN/Creat Ratio 21.4 RATIO (10-20); Calcium,Total 8.5 mg/dL (8.5-10.1); Chloride 113 mmol/L (98-107); Creatinine, Serum 0.75 mg/dL (0.70-1.30); EST Glomerular Filtration Rate 124 mL/min (>60); Est Glom Filt Rate - Afr Amer 150 mL/min (>60); Estimated Creatinine Clearance 136.54 ml/min; Glucose 105 mg/dL (74-106); Potassium 4.2 mmol/L (3.5-5.1); Sodium Level 146 mmol/L (136-145)
[2018-06-11 08:13] LABS: Atypical Lymphocyte RARE %
--- NOTE | 2018-06-11 08:19 | PN.SURG_ITS ---
Subjective: Patient having some flatus, diarrhea and also burping and complains of indigestion, ambulating halls - Physical Exam General: Alert, Oriented x3, Cooperative, No apparent distress Lungs: Normal air movement Cardiovascular: Regular rate Abdomen: Soft, Non-Distended, Tender - Tender near incisions, incision clean dry and intact, no peritoneal signs Vital Signs Temp Pulse Resp BP Pulse Ox 98.3 F 87 18 151/86 H 95 06/11/18 05:25 06/11/18 05:25 06/11/18 05:25 06/11/18 05:25 06/11/18 05:25 Oxygen Flow Rate (L/min) 3 Oxygen Delivery Method Room Air Weight: 248 lb 10.903 oz Body Mass Index (BMI) 34.8 Intake and Output for Last 24 Hours 06/09/18 06/10/18 06/11/18 23:59 23:59 23:59 Intake Total 3450 / 3450 2083 / 2083 2884 / 2884 Output Total 975 / 975 350 / 350 350 / 350 Balance 2475 / 2475 1733 / 1733 2534 / 2534 Microbiology Past 72 Hours 06/09/18 16:06 Gram Stain - Final Aspirate - Abdominal Wound Culture - Preliminary Alpha Hemolytic Streptococcus Laboratory Tests Past 24 Hrs 06/11/18 06/11/18 07:10 07:10 WBC 14.6 H RBC 3.83 L Hgb 12.2 L Hct 36.4 L MCV 95.0 H MCH 31.9 MCHC 33.5 RDW 13.5 RDW Differential 45.0 H Plt Count 323 MPV 9.3 Immature Gran % (Auto) 0.500 Neut % (Auto) 83.0 H Lymph % (Auto) 6.8 L Bates % (Auto) 8.8 Eos % (Auto) 0.5 Baso % (Auto) 0.4 Absolute Neuts (auto) 12.1 H Absolute Lymphs (auto) 0.99 Total Counted Not Reportable Atypical Lymphocytes RARE Sodium 146 H Potassium 4.2 Chloride 113 H Carbon Dioxide 25.0 Anion Gap 8 BUN 16 Creatinine 0.75 Estim Creat Clear Calc 136.54 Est GFR (MDRD) Af Amer 150 Est GFR (MDRD) Non-Af 124 BUN/Creatinine Ratio 21.4 H Glucose 105 Calcium 8.5 Medical Necessity - Tobacco Use Smoking Status: Never smoker Tobacco Use: Chew Assessment/Plan 38-year-old male status post lap scopic appendectomy for perforated appendicitis 1. N.p.o./IV fluids, await increased bowel function, check KUB 2. Leukocytosis, improved still 14, continue Zosyn IV 3. Ambulate halls 4. incentive spirometer 5. PPI for GI prophylaxis, SCDs for DVT prophylaxis Bhavana Shine M.D. Pager: [phone] [facility] [address] [place] [address], [facility], [address] [place] [address] Office: [phone]
--- NOTE | 2018-06-11 08:20 | RAD_ITS ---
STUDY: X-RAY - ABDOMEN/PELVIS REASON FOR EXAM: Male, 38 years old. Abdominal pain. Perforated acute appendicitis on CT June 09, 2018. TECHNIQUE: AP view of the abdomen / pelvis on 3 films. COMPARISON: CT abdomen pelvis as well as single view upright abdominal x-ray June 09, 2018. FINDINGS: Non-visualized lung bases. Calcification in the right lower quadrant overlapping the iliac crest and one image may correspond to one of the calcified appendicoliths seen by CT. Again seen are a number of dilated gas and fluid-filled small bowel loops out of proportion to the minimal gas present in the nondistended colon. The findings are consistent with reactive ileus versus partial small bowel obstruction secondary to the inflammatory process in the right lower quadrant. The nasogastric tube has been removed. There is no demonstrated free abdominal air. The visualized liver, spleen and kidneys are grossly normal in size and morphology. Normal soft tissue structures. There are degenerative changes of the visualized lower thoracic spine. RAD/Abdomen Single View IMPRESSION: Small bowel ileus versus partial small bowel obstruction secondary to inflammation in the right lower quadrant with mildly worsened small bowel dilatation. The nasogastric tube has been removed. Electronically Signed: Earnest Becker MD at 9:30 EST , Service support ,
[2018-06-11 08:56] VITALS: BP 140/91; PULSE 84; RESP 18; TEMP 37.1; O2SAT 95
[2018-06-11] MEDS: Morphine 2 MG/ML Syringe IV (09:03)
[2018-06-11] MEDS: Mag Hydrox/Al Hydrox/Simeth 30 ML UDC PO ×3 (09:03→20:27)
[2018-06-11] MEDS: Ondansetron 4 MG/2 ML Vial IV (09:03)
[2018-06-11] MEDS: Lactated Ringers 1,000 ML 100 ML IV ×2 (09:04→21:35)
[2018-06-11 09:15] VITALS: O2SAT 95
[2018-06-11 14:31] VITALS: BP 147/94; PULSE 93; RESP 18; TEMP 36.7; O2SAT 94
[2018-06-11] MEDS: 0.9% NaCl Peripheral Flush Adult/Peds IV ×2 (18:00→19:25)
[2018-06-11 19:59] VITALS: BP 144/90; PULSE 88; RESP 18; TEMP 36.6; O2SAT 94
[2018-06-12] MEDS: Ketorolac 15 MG/ML Vial IV ×2 (00:11→19:52)
[2018-06-12 02:00] VITALS: BP 149/96; PULSE 83; RESP 18; TEMP 36.9; O2SAT 94
[2018-06-12] MEDS: Piperacil/Tazobactam 3.375 GM/50 ML ML IV (06:01)
[2018-06-12 06:12] LABS: Anion Gap 11 (5-15); BUN 14 mg/dL (7-18); BUN/Creat Ratio 21.1 RATIO (10-20); Calcium,Total 8.4 mg/dL (8.5-10.1); Chloride 112 mmol/L (98-107); Creatinine, Serum 0.66 mg/dL (0.70-1.30); EST Glomerular Filtration Rate 142 mL/min (>60); Est Glom Filt Rate - Afr Amer 172 mL/min (>60); Estimated Creatinine Clearance 155.16 ml/min; Glucose 94 mg/dL (74-106); Potassium 3.6 mmol/L (3.5-5.1); Sodium Level 147 mmol/L (136-145)
--- NOTE | 2018-06-12 06:32 | RAD_ITS ---
STUDY: X-RAY - ABDOMEN/PELVIS REASON FOR EXAM: Male, 38 years old. Possible ileus 72 hours post cholecystectomy (appendectomy). TECHNIQUE: AP view of the abdomen / pelvis on 3 films. COMPARISON: AP view of the abdomen and pelvis on 3 images June 11, 2018. FINDINGS: Incomplete ventilation at the lung bases. There is mild elevation of the right diaphragm. There is a stable pattern of numerous gas and fluid-filled small bowel loops and a possibility of gas in the colon. Findings are consistent with small bowel ileus versus partial small bowel obstruction. There is no demonstrated free abdominal air. The visualized liver, spleen and kidneys are grossly normal in size and morphology. A few radiopaque sutures consistent with prior appendectomy are noted in the right lower quadrant. Normal soft tissue structures. There are stable degenerative changes of the visualized breast spine. RAD/Abdomen Single View (Portable) IMPRESSION: The findings remain consistent with small bowel ileus versus partial small bowel obstruction. No free gas. Electronically Signed: Earnest Becker MD at 15:55 EST , Service support ,
[2018-06-12 06:43] LABS: Absolute Lymphocyte Count 1.89 X10^3/ul (0.83-4.51); Absolute Neutrophil Count 8.7 X10^3/uL (2.0-7.7); Basophil% 2.4 % (0-1); Eosinophil# 0.41 X10^3/uL; Eosinophils% 3.3 % (0-5); Hematocrit 35.6 % (40-54); Hemoglobin 11.4 g/dl (13.0-16.5); Lymphocyte # 1.89 X10^3/ul (4.0); Lymphocyte % 15.1 % (19-41); Mean Corpuscular Hgb 30.4 pg (27.0-32.0); Mean Corpuscular Volume 94.9 fL (80-94); Mean Platelet Vol. 9.2 fl (6.2-12.0); Monocyte# 1.11 X10^3/uL; Monocyte% 8.9 % (0-10); Neutrophil % 69.7 % (47-70); Platelet Count 335 K/mm3 (150-450); RBC Distribution Width CV 13.6 % (11.6-14.6); RBC Distribution Width SD 47.3 fl (35.1-43.9); Red Blood Count 3.75 M/mm3 (4.6-6.2); White Blood Count 12.5 K/mm3 (4.4-11.0)
[2018-06-12 06:46] LABS: Differential Indicated SCAN CRITERIA MET; POSITIVE COUNT NO; POSITIVE DIFFERENTIAL NO; POSITIVE MORPHOLOGY YES
[2018-06-12 08:00] VITALS: BP 148/86; PULSE 80; RESP 16; TEMP 37.1; O2SAT 95
[2018-06-12] MEDS: Lactated Ringers 1,000 ML 100 ML IV (08:38)
[2018-06-12] MEDS: 0.9% NaCl Peripheral Flush Adult/Peds IV (08:40)
--- NOTE | 2018-06-12 11:57 | PCM.PN.SRG ---
Subjective: Pt has less burping, +diarrhea, KUB still shows some dilated SB but improved - Physical Exam General: Alert, Oriented x3, Cooperative, No apparent distress Lungs: Normal air movement Cardiovascular: Regular rate Abdomen: Soft, Non-Distended, Tender - near incision c/d/i, no PS Vital Signs Temp Pulse Resp BP Pulse Ox 98.7 F 80 16 148/86 H 95 06/12/18 08:00 06/12/18 08:00 06/12/18 08:00 06/12/18 08:00 06/12/18 08:00 Oxygen Flow Rate (L/min) 3 Oxygen Delivery Method Room Air Weight: 248 lb 10.903 oz Body Mass Index (BMI) 34.8 Intake and Output for Last 24 Hours 06/10/18 06/11/18 06/12/18 23:59 23:59 23:59 Intake Total 2083 / 2083 3906 / 3906 1592.3 / 1592.3 Output Total 350 / 350 750 / 750 350 / 350 Balance 1733 / 1733 3156 / 3156 1242.3 / 1242.3 Microbiology Past 72 Hours 06/09/18 16:06 Gram Stain - Final Aspirate - Abdominal Wound Culture - Final Strep anginosus Anaerobic Culture - Preliminary Checking for anaerobes, further studies to follow. Laboratory Tests Past 24 Hrs 06/12/18 06/12/18 05:30 05:30 WBC 12.5 H RBC 3.75 L Hgb 11.4 L Hct 35.6 L MCV 94.9 H MCH 30.4 MCHC 32.0 RDW 13.6 RDW Differential 47.3 H Plt Count 335 MPV 9.2 Immature Gran % (Auto) 0.600 Neut % (Auto) 69.7 Lymph % (Auto) 15.1 L [place] % (Auto) 8.9 Eos % (Auto) 3.3 Baso % (Auto) 2.4 H Absolute Neuts (auto) 8.7 H Absolute Lymphs (auto) 1.89 Total Counted Not Reportable Sodium 147 H Potassium 3.6 Chloride 112 H Carbon Dioxide 24.0 Anion Gap 11 BUN 14 Creatinine 0.66 L Estim Creat Clear Calc 155.16 Est GFR (MDRD) Af Amer 172 Est GFR (MDRD) Non-Af 142 BUN/Creatinine Ratio 21.1 H Glucose 94 Calcium 8.4 L Medical Necessity - Tobacco Use Smoking Status: Never smoker Tobacco Use: Chew Assessment/Plan 38-year-old male status post laparoscopic appendectomy for perforated appendicitis 1. sips of clears/IV fluids, await increased bowel function 2. Leukocytosis, improved still 12.5, Unasyn IV 3. Ambulate halls 4. incentive spirometer 5. PPI for GI prophylaxis, SCDs for DVT prophylaxis Bhavana Shine M.D. Pager: [phone] [facility] [address] [place] [address], [facility], [address] [place] [address] Office: [phone]
--- NOTE | 2018-06-12 12:00 | PN.SURG_ITS ---
Subjective: Pt has less burping, +diarrhea, KUB still shows some dilated SB but improved - Physical Exam General: Alert, Oriented x3, Cooperative, No apparent distress Lungs: Normal air movement Cardiovascular: Regular rate Abdomen: Soft, Non-Distended, Tender - near incision c/d/i, no PS Vital Signs Temp Pulse Resp BP Pulse Ox 98.7 F 80 16 148/86 H 95 06/12/18 08:00 06/12/18 08:00 06/12/18 08:00 06/12/18 08:00 06/12/18 08:00 Oxygen Flow Rate (L/min) 3 Oxygen Delivery Method Room Air Weight: 248 lb 10.903 oz Body Mass Index (BMI) 34.8 Intake and Output for Last 24 Hours 06/10/18 06/11/18 06/12/18 23:59 23:59 23:59 Intake Total 2083 / 2083 3906 / 3906 1592.3 / 1592.3 Output Total 350 / 350 750 / 750 350 / 350 Balance 1733 / 1733 3156 / 3156 1242.3 / 1242.3 Microbiology Past 72 Hours 06/09/18 16:06 Gram Stain - Final Aspirate - Abdominal Wound Culture - Final Strep anginosus Anaerobic Culture - Preliminary Checking for anaerobes, further studies to follow. Laboratory Tests Past 24 Hrs 06/12/18 06/12/18 05:30 05:30 WBC 12.5 H RBC 3.75 L Hgb 11.4 L Hct 35.6 L MCV 94.9 H MCH 30.4 MCHC 32.0 RDW 13.6 RDW Differential 47.3 H Plt Count 335 MPV 9.2 Immature Gran % (Auto) 0.600 Neut % (Auto) 69.7 Lymph % (Auto) 15.1 L [place] % (Auto) 8.9 Eos % (Auto) 3.3 Baso % (Auto) 2.4 H Absolute Neuts (auto) 8.7 H Absolute Lymphs (auto) 1.89 Total Counted Not Reportable Sodium 147 H Potassium 3.6 Chloride 112 H Carbon Dioxide 24.0 Anion Gap 11 BUN 14 Creatinine 0.66 L Estim Creat Clear Calc 155.16 Est GFR (MDRD) Af Amer 172 Est GFR (MDRD) Non-Af 142 BUN/Creatinine Ratio 21.1 H Glucose 94 Calcium 8.4 L Medical Necessity - Tobacco Use Smoking Status: Never smoker Tobacco Use: Chew Assessment/Plan 38-year-old male status post laparoscopic appendectomy for perforated appendicitis 1. sips of clears/IV fluids, await increased bowel function 2. Leukocytosis, improved still 12.5, Unasyn IV 3. Ambulate halls 4. incentive spirometer 5. PPI for GI prophylaxis, SCDs for DVT prophylaxis Bhavana Shine M.D. Pager: [phone] [facility] [address] [place] [address], [facility], [address] [place] [address] Office: [phone]
[2018-06-12 14:00] VITALS: BP 157/88; PULSE 76; RESP 16; TEMP 36.4; O2SAT 94
[2018-06-12 15:07] LABS: Pathologist Review Reviewed
[2018-06-12 19:37] VITALS: BP 146/70; PULSE 73; RESP 20; TEMP 37.3; O2SAT 94
[2018-06-12] MEDS: Lactated Ringers 1,000 ML 80 ML IV (19:52)
[2018-06-13] VITALS (7 sets, daily range): BP systolic 140–153; BP diastolic 78–89; PULSE 65–74; RESP 16–18; TEMP 36.7–37.1; O2SAT 94–98
[2018-06-13 06:00] LABS: Anion Gap 11 (5-15); BUN 10 mg/dL (7-18); BUN/Creat Ratio 19.3 RATIO (10-20); Calcium,Total 8.2 mg/dL (8.5-10.1); Chloride 110 mmol/L (98-107); Creatinine, Serum 0.52 mg/dL (0.70-1.30); EST Glomerular Filtration Rate 189 mL/min (>60); Est Glom Filt Rate - Afr Amer 229 mL/min (>60); Estimated Creatinine Clearance 196.93 ml/min; Glucose 83 mg/dL (74-106); Potassium 3.3 mmol/L (3.5-5.1); Sodium Level 146 mmol/L (136-145)
[2018-06-13 06:39] LABS: Hematocrit 33.4 % (40-54); Hemoglobin 10.8 g/dl (13.0-16.5); Mean Corp Hgb Conc 32.3 g/gl (32-36); Mean Corpuscular Hgb 30.4 pg (27.0-32.0); Mean Corpuscular Volume 94.1 fL (80-94); Mean Platelet Vol. 9.2 fl (6.2-12.0); Platelet Count 334 K/mm3 (150-450); RBC Distribution Width CV 13.1 % (11.6-14.6); Red Blood Count 3.55 M/mm3 (4.6-6.2); White Blood Count 11.4 K/mm3 (4.4-11.0)
[2018-06-13 06:40] LABS: Differential Indicated MANUAL DIFF; POSITIVE COUNT NO; POSITIVE DIFFERENTIAL NO; POSITIVE MORPHOLOGY YES
[2018-06-13 07:22] LABS: Eosinophil 1 % (0-5); Lymphocyte 16 % (19-41); Monocyte 2 % (0-10); Neutrophil-Band 23 % (0-5); Neutrophil-Segmented 47 % (47-70); Total Cells Counted 100 (MANUAL DIFF)
[2018-06-13 07:23] LABS: Plasma Cell 11 %
[2018-06-13 07:24] LABS: Absolute Lymphocyte Count 1.82 X10^3/ul (0.83-4.51); Lymphocyte # 1.82 X10^3/ul (4.0); Neutrophil # 7.98 X10^3/uL (2.7-7.7)
[2018-06-13 07:25] LABS: Platelet Estimate ADEQUATE (ADEQ); Red Cell Morphology NORM C+C NORMAL (NORM C&C)
--- NOTE | 2018-06-13 07:30 | RAD_ITS ---
STUDY: X-RAY - ABDOMEN/PELVIS REASON FOR EXAM: Male, 38 years old. History of small bowel obstruction. TECHNIQUE: AP supine and upright views of the abdomen and pelvis. COMPARISON: Comparison is made with prior study dated June 12, 2018. FINDINGS: Elevation of the right hemidiaphragm. Mild degree of increased linear markings at the lung bases suggestive of bibasilar atelectasis. There are dilated loops of the small intestine with a non-distended colon consistent with a small bowel obstruction. A small amount of gas is seen throughout the colon. There is no demonstrated free abdominal air. The visualized liver, spleen and kidneys are grossly normal in size and morphology. Normal soft tissue structures. Normal visualized osseous structures. RAD/Abd Decub and/or Erect(Portabl IMPRESSION: Findings in keeping with a partial small bowel obstruction. Electronically Signed: Abdelrahman Nelson MD at 9:13 EST , Service support ,
--- NOTE | 2018-06-13 09:19 | PCM.PN.SRG ---
Subjective: denies abd pain, +diarrhea, dez sips of clears - Physical Exam General: Alert, Oriented x3, Cooperative, No apparent distress Lungs: Clear to auscultation Cardiovascular: Regular rate Abdomen: Soft, Non-Distended, Tender - minimal ttp near incisions, c/d/i, no PS Vital Signs Temp Pulse Resp BP Pulse Ox 98.2 F 74 18 153/78 H 98 06/13/18 08:23 06/13/18 08:23 06/13/18 08:23 06/13/18 08:23 06/13/18 08:23 Oxygen Flow Rate (L/min) 3 Oxygen Delivery Method Room Air Weight: 248 lb 10.903 oz Body Mass Index (BMI) 34.8 Intake and Output for Last 24 Hours 06/11/18 06/12/18 06/13/18 23:59 23:59 23:59 Intake Total 3906 / 3906 3769.3 / 3769.3 700 / 700 Output Total 750 / 750 750 / 750 160 / 160 Balance 3156 / 3156 3019.3 / 3019.3 540 / 540 Microbiology Past 72 Hours 06/09/18 16:06 Gram Stain - Final Aspirate - Abdominal Wound Culture - Final Strep anginosus Anaerobic Culture - Preliminary Checking for anaerobes, further studies to follow. Laboratory Tests Past 24 Hrs 06/10/18 06/13/18 06/13/18 06:25 05:32 05:32 WBC 11.4 H RBC 3.55 L Hgb 10.8 L Hct 33.4 L MCV 94.1 H MCH 30.4 MCHC 32.3 RDW 13.1 RDW Differential 45.0 H Plt Count 334 MPV 9.2 Neut % (Auto) Not Reportable Absolute Neuts (auto) 8.0 H Absolute Lymphs (auto) 1.82 Total Counted 100 Neutrophils % (Manual) 47 Band Neutrophils % 23 H Lymphocytes % (Manual) 16 L Monocytes % (Manual) 2 Eosinophils % (Manual) 1 Metamyelocytes % Not Reportable Plasma Cell % (Manual) 11 Diff Path Review Reviewed May foll Platelet Estimate ADEQUATE RBC Morphology NORM C+C Sodium 146 H Potassium 3.3 L Chloride 110 H Carbon Dioxide 25.0 Anion Gap 11 BUN 10 Creatinine 0.52 L Estim Creat Clear Calc 196.93 Est GFR (MDRD) Af Amer 229 Est GFR (MDRD) Non-Af 189 BUN/Creatinine Ratio 19.3 Glucose 83 Calcium 8.2 L Medical Necessity - Tobacco Use Smoking Status: Never smoker Tobacco Use: Chew Assessment/Plan 38-year-old male status post laparoscopic appendectomy for perforated appendicitis 1. clears/IV fluids, pt still has dilated SB on KUB, but also has gas in colon too- clinically doing well with sips of clears. 2. Leukocytosis 11.4-band 23 will change back to zosyn IV 3. Ambulate halls 4. incentive spirometer 5. PPI for GI prophylaxis, SCDs for DVT prophylaxis Bhavana Shine M.D. Pager: [phone] [facility] [address] [place] [address], [facility], [address] [place] [address] Office: [phone]
--- NOTE | 2018-06-13 09:24 | PN.SURG_ITS ---
Subjective: denies abd pain, +diarrhea, dez sips of clears - Physical Exam General: Alert, Oriented x3, Cooperative, No apparent distress Lungs: Clear to auscultation Cardiovascular: Regular rate Abdomen: Soft, Non-Distended, Tender - minimal ttp near incisions, c/d/i, no PS Vital Signs Temp Pulse Resp BP Pulse Ox 98.2 F 74 18 153/78 H 98 06/13/18 08:23 06/13/18 08:23 06/13/18 08:23 06/13/18 08:23 06/13/18 08:23 Oxygen Flow Rate (L/min) 3 Oxygen Delivery Method Room Air Weight: 248 lb 10.903 oz Body Mass Index (BMI) 34.8 Intake and Output for Last 24 Hours 06/11/18 06/12/18 06/13/18 23:59 23:59 23:59 Intake Total 3906 / 3906 3769.3 / 3769.3 700 / 700 Output Total 750 / 750 750 / 750 160 / 160 Balance 3156 / 3156 3019.3 / 3019.3 540 / 540 Microbiology Past 72 Hours 06/09/18 16:06 Gram Stain - Final Aspirate - Abdominal Wound Culture - Final Strep anginosus Anaerobic Culture - Preliminary Checking for anaerobes, further studies to follow. Laboratory Tests Past 24 Hrs 06/10/18 06/13/18 06/13/18 06:25 05:32 05:32 WBC 11.4 H RBC 3.55 L Hgb 10.8 L Hct 33.4 L MCV 94.1 H MCH 30.4 MCHC 32.3 RDW 13.1 RDW Differential 45.0 H Plt Count 334 MPV 9.2 Neut % (Auto) Not Reportable Absolute Neuts (auto) 8.0 H Absolute Lymphs (auto) 1.82 Total Counted 100 Neutrophils % (Manual) 47 Band Neutrophils % 23 H Lymphocytes % (Manual) 16 L Monocytes % (Manual) 2 Eosinophils % (Manual) 1 Metamyelocytes % Not Reportable Plasma Cell % (Manual) 11 Diff Path Review Reviewed May foll Platelet Estimate ADEQUATE RBC Morphology NORM C+C Sodium 146 H Potassium 3.3 L Chloride 110 H Carbon Dioxide 25.0 Anion Gap 11 BUN 10 Creatinine 0.52 L Estim Creat Clear Calc 196.93 Est GFR (MDRD) Af Amer 229 Est GFR (MDRD) Non-Af 189 BUN/Creatinine Ratio 19.3 Glucose 83 Calcium 8.2 L Medical Necessity - Tobacco Use Smoking Status: Never smoker Tobacco Use: Chew Assessment/Plan 38-year-old male status post laparoscopic appendectomy for perforated appendicitis 1. clears/IV fluids, pt still has dilated SB on KUB, but also has gas in colon too- clinically doing well with sips of clears. 2. Leukocytosis 11.4-band 23 will change back to zosyn IV 3. Ambulate halls 4. incentive spirometer 5. PPI for GI prophylaxis, SCDs for DVT prophylaxis Bhavana Shine M.D. Pager: [phone] [facility] [address] [place] [address], Outpatient [facility], [address] [place] [address] Office: [phone]
[2018-06-13] MEDS: Lactated Ringers 1,000 ML 80 ML IV (13:34)
[2018-06-13 14:54] LABS: Pathologist Review Reviewed
[2018-06-13] MEDS: 0.9% NaCl Peripheral Flush Adult/Peds IV (22:03)
[2018-06-13] MEDS: Lactated Ringers 1,000 ML 60 ML IV (22:04)
[2018-06-14] VITALS (9 sets, daily range): BP systolic 132–157; BP diastolic 06–92; PULSE 66–80; RESP 16–24; TEMP 36.2–37.3; O2SAT 92–98
[2018-06-14 06:26] LABS: Absolute Neutrophil Count 7.5 X10^3/uL (2.0-7.7); Basophil# 0.17 X10^3/uL; Basophil% 1.5 % (0-1); Eosinophil# 0.34 X10^3/uL; Eosinophils% 3.1 % (0-5); Hematocrit 34.8 % (40-54); Hemoglobin 11.5 g/dl (13.0-16.5); Lymphocyte % 17.3 % (19-41); Mean Corpuscular Hgb 30.7 pg (27.0-32.0); Mean Corpuscular Volume 92.8 fL (80-94); Mean Platelet Vol. 8.8 fl (6.2-12.0); Monocyte# 0.96 X10^3/uL; Monocyte% 8.7 % (0-10); Neutrophil # 7.51 X10^3/uL (2.7-7.7); Neutrophil % 68.3 % (47-70); Platelet Count 352 K/mm3 (150-450); RBC Distribution Width CV 12.8 % (11.6-14.6); RBC Distribution Width SD 43.4 fl (35.1-43.9); Red Blood Count 3.75 M/mm3 (4.6-6.2)
[2018-06-14 06:27] LABS: Differential Indicated SCAN CRITERIA MET; POSITIVE COUNT NO; POSITIVE DIFFERENTIAL NO; POSITIVE MORPHOLOGY YES
[2018-06-14 06:37] LABS: Anion Gap 8 (5-15); BUN 7 mg/dL (7-18); BUN/Creat Ratio 12.3 RATIO (10-20); Chloride 105 mmol/L (98-107); Creatinine, Serum 0.57 mg/dL (0.70-1.30); EST Glomerular Filtration Rate 169 mL/min (>60); Est Glom Filt Rate - Afr Amer 205 mL/min (>60); Estimated Creatinine Clearance 179.65 ml/min; Glucose 89 mg/dL (74-106); Potassium 3.5 mmol/L (3.5-5.1); Sodium Level 138 mmol/L (136-145)
--- NOTE | 2018-06-14 07:30 | RAD_ITS ---
STUDY: X-RAY - ABDOMEN/PELVIS REASON FOR EXAM: Male, 38 years old. Recent surgery for perforated appendicitis. TECHNIQUE: Two AP supine views of the abdomen and pelvis. COMPARISON: Comparison is made with prior study dated June 13, 2013. FINDINGS: Elevation of the right hemidiaphragm. There are dilated loops of the small intestine with a non-distended colon consistent with a small bowel obstruction. There is less gas within the colon at this time. There is no demonstrated free abdominal air. The visualized liver, spleen and kidneys are grossly normal in size and morphology. Normal soft tissue structures. Normal visualized osseous structures. RAD/Abdomen Single View (Portable) IMPRESSION: Stable appearance of the small bowel dilatation. Less gas is seen in the colon at this time. Electronically Signed: Abdelrahman Nelson MD at 12:50 EST , Service support ,
--- NOTE | 2018-06-14 08:55 | PN.SURG_ITS ---
Subjective: Patient has no complaints, tolerating clears, no nausea no vomiting, still having diarrhea - Physical Exam General: Alert, Oriented x3, Cooperative, No apparent distress HEENT: Atraumatic Lungs: Normal air movement Cardiovascular: Regular rate Abdomen: Soft, Non-Distended, Tender - minimal near incisions, c/d/i, no PS Vital Signs Temp Pulse Resp BP Pulse Ox 97.1 F L 70 16 157/87 H 97 06/14/18 08:39 06/14/18 08:39 06/14/18 08:39 06/14/18 08:39 06/14/18 08:39 Oxygen Flow Rate (L/min) 3 Oxygen Delivery Method Room Air Weight: 248 lb 10.903 oz Body Mass Index (BMI) 34.8 Intake and Output for Last 24 Hours 06/12/18 06/13/18 06/14/18 23:59 23:59 23:59 Intake Total 3769.3 / 3769.3 1300 / 1300 2166 / 2166 Output Total 750 / 750 160 / 160 Balance 3019.3 / 3019.3 1140 / 1140 2166 / 2166 Microbiology Past 72 Hours 06/09/18 16:06 Gram Stain - Final Aspirate - Abdominal Wound Culture - Final Strep anginosus Anaerobic Culture - Preliminary Checking for anaerobes, further studies to follow. Laboratory Tests Past 24 Hrs 06/13/18 06/14/18 06/14/18 05:32 05:35 05:35 WBC 11.0 RBC 3.75 L Hgb 11.5 L Hct 34.8 L MCV 92.8 MCH 30.7 MCHC 33.0 RDW 12.8 RDW Differential 43.4 Plt Count 352 MPV 8.8 Immature Gran % (Auto) 1.100 H Neut % (Auto) 68.3 Lymph % (Auto) 17.3 L [place] % (Auto) 8.7 Eos % (Auto) 3.1 Baso % (Auto) 1.5 H Absolute Neuts (auto) 7.5 Absolute Lymphs (auto) 1.90 Total Counted Not Reportable Differential Comment Diff Path Review Reviewed Sodium 138 Potassium 3.5 Chloride 105 Carbon Dioxide 25.0 Anion Gap 8 BUN 7 Creatinine 0.57 L Estim Creat Clear Calc 179.65 Est GFR (MDRD) Af Amer 205 Est GFR (MDRD) Non-Af 169 BUN/Creatinine Ratio 12.3 Glucose 89 Calcium 8.0 L Medical Necessity - Tobacco Use Smoking Status: Never smoker Tobacco Use: Chew Assessment/Plan 38-year-old male status post laparoscopic appendectomy for perforated appendicitis 1. will check KUB if ok will advance diet 2. Leukocytosis 11, on zosyn IV, 3. Ambulate halls 4. incentive spirometer 5. PPI for GI prophylaxis, SCDs for DVT prophylaxis Addendum: Patient's KUB still shows pretty dilated small bowel. Discussed with patient and his . We will plan to get a CT abdomen pelvis with p.o. and IV contrast to look for possible abscess. Patient is are frustrated with the process as he feels better however I discussed with them that I do not feel that if he is fed with this dilated small bowel that he would do well and would likely need an NG tube and possibly be in the hospital longer. They were agreeable to proceed with the CT. Bhavana Shine M.D. Pager: [phone] [facility] [address] [place] [address], [facility], [address] [place] [id number] Office: [phone]
--- NOTE | 2018-06-14 09:46 | CT_ITS ---
STUDY: CT ABDOMEN AND PELVIS WITH CONTRAST REASON FOR EXAM: Male, 38 years old. Recent appendectomy for perforated appendicitis. Small bowel dilatation. RADIATION DOSAGE (If Supplied By Facility): CTDIvol = ( 13.65 ) mGy, DLP = ( 1418.93 ) mGycm TECHNIQUE: Transaxial images were obtained from the dome of the diaphragm to the symphysis pubis with oral contrast. 100mL ml of Isovue 300 contrast was administered. Sagittal and coronal images were reconstructed. Individualized dose optimization techniques were used for this CT. COMPARISON: Comparison is made with prior CT scan and abdomen dated June 09, 2018. FINDINGS: Mild degree of bibasilar linear atelectasis. Minimal bilateral pleural effusions. The visualized portions of the heart are within normal limits. Normal liver. Normal gallbladder and extrahepatic biliary system. Normal spleen. Normal pancreas. Normal bilateral adrenal glands. Normal right kidney. Normal left kidney. There is a small hiatal hernia. Mildly dilated small bowel loops. A small amount of gas is seen in the colon. This may represent either an incomplete small bowel obstruction or ileus. Normal colon. There are surgical clips in the region of the appendix consistent with a prior appendectomy. Increased markings are seen within the surrounding mesenteric fat suggestive of postoperative change. There is evidence of a 3.6 cm x 8.4 cm x 4.3 cm circumscribed fluid collection in the mesenteric fat in the right lower quadrant. This most likely represents a postoperative abscess. Normal abdominal aorta. Normal inferior vena cava. There is borderline retroperitoneal lymphadenopathy with enlarged nodes no greater than 10mm in the short axis diameter. Normal urinary bladder. Small amount of fluid is seen in the pelvis. There is a left-sided inguinal hernia containing adipose tissue. Normal osseous structures. CT/Abdomen/Pelvis WITH Contrast IMPRESSION: Status post appendectomy. Findings suggestive of abscess collection at the operative site as described with multiple other findings. The results were discussed with the referring surgeon. Electronically Signed: Abdelrahman Nelson MD at 14:01 EST , Service support ,
--- NOTE | 2018-06-14 14:00 | CT_ITS ---
PROCEDURE: CT DIRECTED ABSCESS DRAINAGE, PERITONEAL DATE OF EXAMINATION: June 14, 2018. INDICATION: Male, 38 years old. Abnormal fluid collection following appendectomy. PHYSICIAN: Abdelrahman Nelson M.D. CONSENT: Written informed consent was obtained having explained the risks, benefits and alternatives in detail with the patient who accepted the risks and agreed to proceed. Laboratory review and clinical assessment was performed. CONSCIOUS SEDATION PROTOCOL: The Drugs used were: 50 mg Versed, IV., and 50 mcg Fentanyl, IV. The sedation time was: 21 minutes. Conscious sedation was started at 2:17 PM estimated 2:38 PM. The conscious sedation protocol was independently monitored. RADIATION DOSAGE (If Supplied By Facility): CTDIvol = ( 21.5 ) mGy, DLP = ( 579.54 ) mGycm. Individualized dose reduction techniques were utilized. TECHNIQUE: CT sections were made through the abdomen and pelvis revealing an abscess in the right lower quadrant adjacent to the operative site. The skin surface was prepped and draped in a sterile fashion. Puncture of this collection was performed initially with a 8. 5 [place] catheter and fluid was aspirated. Drainage catheter was then inserted into the collection and formed into position. Additional fluid was aspirated for a total of approximately 25 cc of cloudy red fluid. The catheter was sutured into position to allow for continued drainage. Followup CT sections reveals good position of the catheter CT/Abscess/Fistula/Sinus Tract IMPRESSION: 1. CT directed drainage of a fluid collection using CT image guidance and image documentation as described. 2. Conscious Sedation protocol utilized with independent monitoring Electronically Signed: Abdelrahman Nelson MD at 15:44 EST , Service support ,
[2018-06-14] MEDS: Midazolam 2 MG/2 ML Syringe IV (14:17)
[2018-06-14] MEDS: fentaNYL 100 MCG/2 ML Ampul IV (14:18)
[2018-06-15 02:20] VITALS: BP 137/72; PULSE 95; RESP 14; TEMP 36.9; O2SAT 97
[2018-06-15] MEDS: 0.9% NaCl Peripheral Flush Adult/Peds IV ×2 (05:35→14:19)
[2018-06-15 07:08] VITALS: O2SAT 94
[2018-06-15 07:53] LABS: Absolute Neutrophil Count 8.5 X10^3/uL (2.0-7.7); Basophil# 0.09 X10^3/uL; Basophil% 0.8 % (0-1); Differential Indicated SCAN CRITERIA MET; Eosinophil# 0.25 X10^3/uL; Eosinophils% 2.3 % (0-5); Hematocrit 36.9 % (40-54); Hemoglobin 12.2 g/dl (13.0-16.5); Lymphocyte % 12.6 % (19-41); Mean Corp Hgb Conc 33.1 g/gl (32-36); Mean Corpuscular Hgb 30.7 pg (27.0-32.0); Mean Corpuscular Volume 92.7 fL (80-94); Mean Platelet Vol. 8.9 fl (6.2-12.0); Monocyte# 0.76 X10^3/uL; Monocyte% 6.9 % (0-10); Neutrophil # 8.48 X10^3/uL (2.7-7.7); Neutrophil % 76.4 % (47-70); POSITIVE COUNT NO; POSITIVE DIFFERENTIAL NO; POSITIVE MORPHOLOGY YES; Platelet Count 428 K/mm3 (150-450); RBC Distribution Width CV 12.3 % (11.6-14.6); RBC Distribution Width SD 40.6 fl (35.1-43.9); Red Blood Count 3.98 M/mm3 (4.6-6.2); White Blood Count 11.1 K/mm3 (4.4-11.0)
--- NOTE | 2018-06-15 08:36 | PCM.PN.SRG ---
Subjective: Patient tolerating clears, states bowel movements are more formed, drain placed yesterday about 25 cc total of 45 for the day, cultures growing - Physical Exam General: Alert, Oriented x3, Cooperative, No apparent distress HEENT: Atraumatic Lungs: Normal air movement Cardiovascular: Regular rate Abdomen: Soft, Non-Distended, Tender - Mild at IR drain in the right lower mid abdomen, TONY light yellow, incisions healing well clean dry and intact with Steri's, no peritoneal signs Extremities: No clubbing, No cyanosis, No edema Vital Signs Temp Pulse Resp BP Pulse Ox 98.4 F 95 14 137/72 H 94 06/15/18 02:20 06/15/18 02:20 06/15/18 02:20 06/15/18 02:20 06/15/18 07:08 Oxygen Flow Rate (L/min) 3 Oxygen Delivery Method [6] Room Air Oxygen Delivery Method [5] Room Air Oxygen Delivery Method [4] Room Air Oxygen Delivery Method [3] Room Air Oxygen Delivery Method [2] Room Air Oxygen Delivery Method [1 ( Room Air Initial Baseline)] Oxygen Delivery Method Room Air Weight: 248 lb 10.903 oz Body Mass Index (BMI) 34.8 Intake and Output for Last 24 Hours 06/13/18 06/14/18 06/15/18 23:59 23:59 23:59 Intake Total 1300 / 1300 3166 / 3166 598 / 598 Output Total 160 / 160 45 / 45 15 / 15 Balance 1140 / 1140 3121 / 3121 583 / 583 Microbiology Past 72 Hours 06/09/18 16:06 Gram Stain - Final Aspirate - Abdominal Wound Culture - Final Strep anginosus Anaerobic Culture - Final Fusobacterium nucleatum Bacteroides fragilis Laboratory Tests Past 24 Hrs 06/15/18 07:28 WBC 11.1 H RBC 3.98 L Hgb 12.2 L Hct 36.9 L MCV 92.7 MCH 30.7 MCHC 33.1 RDW 12.3 RDW Differential 40.6 Plt Count 428 MPV 8.9 Immature Gran % (Auto) 1.000 H Neut % (Auto) 76.4 H Lymph % (Auto) 12.6 L [place] % (Auto) 6.9 Eos % (Auto) 2.3 Baso % (Auto) 0.8 Absolute Neuts (auto) 8.5 H Absolute Lymphs (auto) 1.40 Total Counted Not Reportable Medical Necessity - Tobacco Use Smoking Status: Never smoker Tobacco Use: Chew Assessment/Plan 38-year-old male status post laparoscopic appendectomy for perforated appendicitis with postop abscess status post IR drain 1. Tolerating clears, more formed bowel movements, will check KUB if ok will advance diet 2. Leukocytosis 11.1, on zosyn IV, TONY to bulb suction 3. Ambulate halls 4. incentive spirometer 5. PPI for GI prophylaxis, SCDs for DVT prophylaxis Bhavana Shine M.D. Pager: [phone] [facility] [address] [place] [address], Outpatient [place], [address] [place] [address] Office: [phone]
[2018-06-15 08:45] VITALS: BP 139/79; PULSE 72; RESP 16; TEMP 37; O2SAT 97
--- NOTE | 2018-06-15 08:55 | RAD_ITS ---
STUDY: X-RAY - ABDOMEN/PELVIS REASON FOR EXAM: Male, 38 years old. Small bowel dilatation. Recent appendectomy. TECHNIQUE: Two AP supine views of the abdomen and pelvis. COMPARISON: Comparison is made with prior study dated June 14, 2018. FINDINGS: Normal visualized lung bases. There is less gaseous distention of the small bowel loops. Gas is now seen in the colon. A drainage catheter is seen in the right lower quadrant. Normal soft tissue structures. Normal visualized osseous structures. RAD/Abdomen Single View IMPRESSION: Less distention of the small bowel loops. Gas is seen in the colon. A drainage catheter is seen in the right lower quadrant. Electronically Signed: Abdelrahman Nelson MD at 10:32 EST , Service support ,
[2018-06-15 14:15] VITALS: BP 126/72; PULSE 85; RESP 16; TEMP 36.4; O2SAT 98
[2018-06-15 20:55] VITALS: BP 129/73; PULSE 69; RESP 16; TEMP 37.1; O2SAT 98
[2018-06-16 03:02] VITALS: BP 137/72; PULSE 71; RESP 16; TEMP 37.1; O2SAT 95
[2018-06-16] MEDS: 0.9% NaCl Peripheral Flush Adult/Peds IV ×3 (03:04→06:02)
--- NOTE | 2018-06-16 07:30 | RAD_ITS ---
STUDY: X-RAY - ABDOMEN/PELVIS REASON FOR EXAM: Male, 38 years old. Ileus, status post surgery for perforated appendicitis, abscess drainage TECHNIQUE: Two AP supine views of the abdomen and pelvis. COMPARISON: CT from 06/14/2018, abdomen x-ray from 06/15/2018 FINDINGS: Normal visualized lung bases. Increasing gaseous distention/dilation of bowel with maximum axial diameter measuring 5.5 cm (previously measured 4.1 cm). There is no demonstrated free abdominal air. The visualized liver, spleen and kidneys are grossly normal in size and morphology. Right lower quadrant tail drainage catheter noted. Normal visualized osseous structures. RAD/Abdomen Single View (Portable) IMPRESSION: 1. Worsening ileus or partial small bowel obstruction. 2. Right lower quadrant drainage catheter. Electronically Signed: Dewey Gray MD at 11:34 EST , Service support ,
[2018-06-16 07:47] LABS: Absolute Lymphocyte Count 1.44 X10^3/ul (0.83-4.51); Absolute Neutrophil Count 8.2 X10^3/uL (2.0-7.7); Basophil# 0.05 X10^3/uL; Basophil% 0.5 % (0-1); Eosinophil# 0.23 X10^3/uL; Eosinophils% 2.1 % (0-5); Hematocrit 36.1 % (40-54); Hemoglobin 11.8 g/dl (13.0-16.5); Lymphocyte # 1.44 X10^3/ul (4.0); Lymphocyte % 13.4 % (19-41); Mean Corp Hgb Conc 32.7 g/gl (32-36); Mean Corpuscular Hgb 30.3 pg (27.0-32.0); Mean Corpuscular Volume 92.8 fL (80-94); Mean Platelet Vol. 8.7 fl (6.2-12.0); Monocyte# 0.78 X10^3/uL; Monocyte% 7.2 % (0-10); Neutrophil # 8.18 X10^3/uL (2.7-7.7); Neutrophil % 76.1 % (47-70); Platelet Count 401 K/mm3 (150-450); RBC Distribution Width CV 12.7 % (11.6-14.6); RBC Distribution Width SD 42.7 fl (35.1-43.9); Red Blood Count 3.89 M/mm3 (4.6-6.2); White Blood Count 10.8 K/mm3 (4.4-11.0)
[2018-06-16 07:54] LABS: POSITIVE COUNT NO; POSITIVE DIFFERENTIAL NO; POSITIVE MORPHOLOGY NO
[2018-06-16 08:00] VITALS: BP 128/75; PULSE 70; RESP 14; TEMP 37; O2SAT 97
--- NOTE | 2018-06-16 08:55 | PN.SURG_ITS ---
Subjective: Patient tolerated full's, denies any pain, TONY minimal output 20 cc total yesterday with most being from midnight to 6 AM yesterday - Physical Exam General: Alert, Oriented x3, Cooperative, No apparent distress HEENT: Atraumatic Abdomen: Soft, Non Tender, Non-Distended, - - IR drain in place, serous, minimal in TONY, incisions clean dry and intact, no peritoneal signs Extremities: No clubbing, No cyanosis, No edema Vital Signs Temp Pulse Resp BP Pulse Ox 98.6 F 70 14 128/75 H 97 06/16/18 08:00 06/16/18 08:00 06/16/18 08:00 06/16/18 08:00 06/16/18 08:00 Oxygen Flow Rate (L/min) 3 Oxygen Delivery Method [6] Room Air Oxygen Delivery Method [5] Room Air Oxygen Delivery Method [4] Room Air Oxygen Delivery Method [3] Room Air Oxygen Delivery Method [2] Room Air Oxygen Delivery Method [1 ( Room Air Initial Baseline)] Oxygen Delivery Method Room Air Weight: 248 lb 10.903 oz Body Mass Index (BMI) 34.8 Intake and Output for Last 24 Hours 06/14/18 06/15/18 06/16/18 23:59 23:59 23:59 Intake Total 3166 / 3166 1365 / 1365 733 / 733 Output Total 45 / 45 5 / 5 Balance 3121 / 3121 1345 / 1345 728 / 728 Microbiology Past 72 Hours 06/14/18 14:55 Gram Stain - Final Aspirate - Abdominal Wound Culture - Preliminary No growth-Final to follow 06/09/18 16:06 Gram Stain - Final Aspirate - Abdominal Wound Culture - Final Strep anginosus Anaerobic Culture - Final Fusobacterium nucleatum Bacteroides fragilis Laboratory Tests Past 24 Hrs 06/16/18 07:40 WBC 10.8 RBC 3.89 L Hgb 11.8 L Hct 36.1 L MCV 92.8 MCH 30.3 MCHC 32.7 RDW 12.7 RDW Differential 42.7 Plt Count 401 MPV 8.7 Immature Gran % (Auto) 0.700 Neut % (Auto) 76.1 H Lymph % (Auto) 13.4 L [place] % (Auto) 7.2 Eos % (Auto) 2.1 Baso % (Auto) 0.5 Absolute Neuts (auto) 8.2 H Absolute Lymphs (auto) 1.44 Total Counted Not Reportable Medical Necessity - Tobacco Use Smoking Status: Never smoker Tobacco Use: Chew Assessment/Plan 38-year-old male status post laparoscopic appendectomy for perforated appendicitis with postop fluid collection status post IR drain 1. Tolerating full's, more formed bowel movements, KUB is improved however still has some dilated small bowel we will plan to have patient stay on full's for another day at home and then able to advance to a soft/transitional for a couple of days. 2. Leukocytosis 10.8, on zosyn IV, TONY to bulb suction-no organisms growing, minimal output IR drain removed this morning, patient tolerated well. DC home with Levaquin and Flagyl for 5 days 3. continue ambulating halls 4. incentive spirometer 5. PPI for GI prophylaxis, SCDs for DVT prophylaxis f/u in office TueJun 21 at 8am. Bhavana Shine M.D. Pager: [phone] [facility] [address] [place] [address], [facility], [address] [place] [address] Office: [phone]
--- NOTE | 2018-06-16 09:29 | PCM.DC.APPY ---
Discharge Diet: - - Full liquid x 1 day then ok to add more soft foods/light diet for a couple more days, if ok with that ok to have more regular diet Discharge Activity: May Shower Lifting Restrictions: no lifting >20 lb for 4 weeks from surgery will gradually increase after Call your doctor if your incision/area has: Continuous Slow Oozing, Sudden Increased Bleeding, Increased Pain/ Swelling, Increased Redness, Foul Smelling Discharge, Swelling at the incision site Call your doctor if you observe: Fever of 101 or Higher, - - nausea/vomiting Instructions: Appendectomy Medications to take at Discharge Ondansetron [Zofran Odt] 4 mg PO Q8H PRN PRN #10 tab 06/06/18 Ondansetron [Zofran Odt] 4 mg PO Q8H PRN PRN #7 tab 06/09/18 Metronidazole [Flagyl] 500 mg PO Q8H #15 tablet 06/16/18 Pantoprazole Sodium [Protonix] 40 mg PO DAILY #30 tablet 06/16/18 levoFLOXacin tablet [Levaquin tablet] 500 mg PO DAILY #5 tablet 06/16/18 Allergies/Adverse Reactions: Allergies No Known Allergies Allergy (Verified 06/09/18 10:15) The following prescriptions were given: Ondansetron [Zofran Odt] 4 mg PO Q8H PRN PRN #7 tab PRN Reason: Nausea levoFLOXacin tablet [Levaquin tablet] 500 mg PO DAILY #5 tablet Metronidazole [Flagyl] 500 mg PO Q8H #15 tablet Pantoprazole Sodium [Protonix] 40 mg PO DAILY #30 tablet Test Results: Test results from this visit will be discussed in further detail at your follow-up appointment, if applicable. Please Follow Up With: Bhavana Shine MD - After 5 PM/weekends call [phone] with any concerns When: at 8am Proposed Discharge Date: 06/16/18
--- NOTE | 2018-06-16 09:34 | DCINST_ITS ---
Discharge Diet: - - Full liquid x 1 day then ok to add more soft foods/light diet for a couple more days, if ok with that ok to have more regular diet Discharge Activity: May Shower Lifting Restrictions: no lifting >20 lb for 4 weeks from surgery will gradually increase after Call your doctor if your incision/area has: Continuous Slow Oozing, Sudden Increased Bleeding, Increased Pain/ Swelling, Increased Redness, Foul Smelling Discharge, Swelling at the incision site Call your doctor if you observe: Fever of 101 or Higher, - - nausea/vomiting Instructions: Appendectomy Medications to take at Discharge Ondansetron [Zofran Odt] 4 mg PO Q8H PRN PRN #10 tab 06/06/18 Ondansetron [Zofran Odt] 4 mg PO Q8H PRN PRN #7 tab 06/09/18 Metronidazole [Flagyl] 500 mg PO Q8H #15 tablet 06/16/18 Pantoprazole Sodium [Protonix] 40 mg PO DAILY #30 tablet 06/16/18 levoFLOXacin tablet [Levaquin tablet] 500 mg PO DAILY #5 tablet 06/16/18 Allergies/Adverse Reactions: Allergies No Known Allergies Allergy (Verified 06/09/18 10:15) The following prescriptions were given: Ondansetron [Zofran Odt] 4 mg PO Q8H PRN PRN #7 tab PRN Reason: Nausea levoFLOXacin tablet [Levaquin tablet] 500 mg PO DAILY #5 tablet Metronidazole [Flagyl] 500 mg PO Q8H #15 tablet Pantoprazole Sodium [Protonix] 40 mg PO DAILY #30 tablet Test Results: Test results from this visit will be discussed in further detail at your follow- up appointment, if applicable. Please Follow Up With: Bhavana Shine MD - After 5 PM/weekends call [phone] with any concerns When: at 8am Proposed Discharge Date: 06/16/18
--- NOTE | 2018-06-16 09:38 | PCM.DC.SUM ---
Discharge Date and Diagnosis Date of Admission: 06/09/18 Date of Discharge: 06/16/18 - Primary Discharge Diagnosis Perforated acute appendicitis Ileus Hospital Course and Treatment Imaging Results: 06/16/18 07:30 KUB [Abdomen Single View (Portable)] [RAD] Urgent Operations: appendectomy Procedures: - - 06/14/18 IR placement of drain for right lower quadrant abdominal fluid collection Summary of Care Provided: The patient is a 38 year old M patient presents to the ER 06/09/[address] abdomen pelvis was consistent with acute perforated appendicitis with phlegmon and several large appendicoliths, small bowel ileus. Patient's white blood cell count was 23.5. Patient states his pain has been going on for about 5 days with nausea and vomiting and patient did appear ill. Patient did have a small fluid collection however is unable to be drained with IR and his large appendicoliths would need to be removed surgically. This was discussed with patient and his decided to proceed with a laparoscopic appendectomy on 06/09/18. Postoperative patient was doing well however continue to have an ileus with dilated small bowels even though he was having some diarrhea but passing much flatus initially and was burping quite a bit. Over several days that burping did improve as he was ambulating the halls and chewing gum. Patient was able to to be started on a clear diet however that did go slowly as he still had some dilated small bowels. Patient was still having some diarrhea but also having some formed bowel movements. Patient's white blood count also improved as patient was on Zosyn IV throughout the hospitalization. On 06/14/18 patient was still having dilated small bowel so a CT abdomen pelvis was repeated which did show a fluid collection right lower quadrant which an IR drain was placed however this did not grow any organisms and by discharge the output was minimal and was able to be DC'd. Patient was tolerating a clear diet and also full liquid diet. Patient was discharged on of full diet with plans to advance the following day a soft diet for a couple of days. - Physical Exam General: Alert, Oriented x3, Cooperative, No apparent distress HEENT: Atraumatic Lungs: Normal air movement Cardiovascular: Regular rate Abdomen: Soft, Non Tender, Non-Distended, - - Incision clean dry and intact with Steri-Strips, previous IR drain sites covered with gauze, no peritoneal signs Extremities: No clubbing, No cyanosis, No edema Vital Signs Temp Pulse Resp BP Pulse Ox 98.6 F 70 14 128/75 H 97 06/16/18 08:00 06/16/18 08:00 06/16/18 08:00 06/16/18 08:00 06/16/18 08:00 Oxygen Flow Rate (L/min) 3 Oxygen Delivery Method [6] Room Air Oxygen Delivery Method [5] Room Air Oxygen Delivery Method [4] Room Air Oxygen Delivery Method [3] Room Air Oxygen Delivery Method [2] Room Air Oxygen Delivery Method [1 ( Room Air Initial Baseline)] Oxygen Delivery Method Room Air Weight: 248 lb 10.903 oz Body Mass Index (BMI) 34.8 Intake and Output for Last 24 Hours 06/14/18 06/15/18 06/16/18 23:59 23:59 23:59 Intake Total 3166 / 3166 1365 / 1365 733 / 733 Output Total 45 / 45 20 / 20 5 / 5 Balance 3121 / 3121 1345 / 1345 728 / 728 Microbiology Past 72 Hours 06/14/18 14:55 Gram Stain - Final Aspirate - Abdominal Wound Culture - Preliminary No growth-Final to follow 06/09/18 16:06 Gram Stain - Final Aspirate - Abdominal Wound Culture - Final Strep anginosus Anaerobic Culture - Final Fusobacterium nucleatum Bacteroides fragilis Laboratory Tests Past 24 Hrs 06/16/18 07:40 WBC 10.8 RBC 3.89 L Hgb 11.8 L Hct 36.1 L MCV 92.8 MCH 30.3 MCHC 32.7 RDW 12.7 RDW Differential 42.7 Plt Count 401 MPV 8.7 Immature Gran % (Auto) 0.700 Neut % (Auto) 76.1 H Lymph % (Auto) 13.4 L [place] % (Auto) 7.2 Eos % (Auto) 2.1 Baso % (Auto) 0.5 Absolute Neuts (auto) 8.2 H Absolute Lymphs (auto) 1.44 Total Counted Not Reportable Discharge Diet: - - Full liquid x 1 day then ok to add more soft foods/light diet for a couple more days, if ok with that ok to have more regular diet Discharge Activity: May Shower Call your doctor if your incision/area has: Continuous Slow Oozing, Sudden Increased Bleeding, Increased Pain/ Swelling, Increased Redness, Foul Smelling Discharge, Swelling at the incision site Call your doctor if you observe: Fever of 101 or Higher, - - nausea/vomiting Home Medications: Medications to take at Discharge Ondansetron [Zofran Odt] 4 mg PO Q8H PRN PRN #10 tab 06/06/18 Ondansetron [Zofran Odt] 4 mg PO Q8H PRN PRN #7 tab 06/09/18 Metronidazole [Flagyl] 500 mg PO Q8H #15 tablet 06/16/18 Pantoprazole Sodium [Protonix] 40 mg PO DAILY #30 tablet 06/16/18 levoFLOXacin tablet [Levaquin tablet] 500 mg PO DAILY #5 tablet 06/16/18 Following Prescrptions Were Given to Patient: Ondansetron [Zofran Odt] 4 mg PO Q8H PRN PRN #7 tab PRN Reason: Nausea levoFLOXacin tablet [Levaquin tablet] 500 mg PO DAILY #5 tablet Metronidazole [Flagyl] 500 mg PO Q8H #15 tablet Pantoprazole Sodium [Protonix] 40 mg PO DAILY #30 tablet Primary Care Physician: Care Physician,No Primary [Primary Care Provider] - Please Follow Up With: Bhavana Shine MD - After 5 PM/weekends call [phone] with any concerns When: at 8am Patient Instructions: Appendectomy Medical Necessity - Tobacco Use Smoking Status: Never smoker Tobacco Use: Chew Meaningful Use Info Meaningful Use Diagnoses (Choose all that apply): None applicable
[2018-06-16] MEDS: Pantoprazole Sodium 40 MG Tablet PO (10:54)
[2018-06-16 11:00] VITALS: BP 128/69; PULSE 80; RESP 16; TEMP 37; O2SAT 98
--- NOTE | 2018-06-19 15:28 | CASEMGMT ---
[facility] CM DC PHONE CALL DC DATE: 06/16/18 DC DISPOSITION: HOME LACE/STRATA: 01/09 Call to home phone. 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 Mavis STEPHENSON RN ACM
== END 2018-06-16 11:16 | disposition home or self-care (01) | DRG 339 ==
LOC: ED 13:07 → SDC 13:58 → MS2 17:55 → SDC 06-12 01:51
PROVIDERS: Admitting Provider Surgery; Emergency Provider Emergency Medicine; Referring Provider Surgery; Visit Provider Surgery
PROC: 0DTJ4ZZ Resection of Appendix, Percutaneous Endoscopic Approach (ICD-10-PCS; CPT 44970; principal; 2018-06-09 14:00)
DX: K35.33 Acute appendicitis with perforation, localized peritonitis, and gangrene, with abscess (principal); K56.7 Ileus, unspecified; K38.1 Appendicular concretions; Z72.0 Tobacco use
CPT/HCPCS: 20501; 36415; 74018; 74019; 74177; 77012; 80048; 80076; 83690; 85025; 87070; 87075; 87076; 87077; 87186; 87205; 88304; 99156; 99157; 99284; J7030; J7040; J7120; Q9967; A4216; C1760; J0295; J2405